=== PATIENT | male | born 1950 | race Caucasian/White ===

== ENCOUNTER 2016-11-08 11:52 | Outpatient (CLI) ==
[2013-02-06 14:15] VITALS: BMI 27.3
[2013-02-09 03:43] VITALS: TEMP 97.7
--- NOTE | 2016-11-08 13:24 | DI ---
EXAM: Chest two views HISTORY: Cough, chronic obstructive pulmonary disease COMPARISON: 01/13/2015 TECHNIQUE: Two views of the chest were performed FINDINGS: There is lower airway bronchial wall thickening. There is no focal airspace consolidatio n. There is no pleural effusion or pneumothorax. The heart is normal in size. The mediastinal cont our is unchanged, noting atherosclerosis. There are median sternotomy wires. There is no acute abn ormality of the bones. IMPRESSION: Lower airway thickening may represent reactive airways disease or bronchiolitis. No fo nelson airspace consolidation.
== END 2016-11-08 11:53 | disposition home or self-care (01) ==
LOC: RAD 11:52
PROVIDERS: ATTEND Internal Medicine
DX: J44.9 Chronic obstructive pulmonary disease, unspecified (principal); F17.210 Nicotine dependence, cigarettes, uncomplicated; R05 Cough

== ENCOUNTER 2017-12-01 12:32 | Outpatient (CLI) | payer OTHER ==
[2013-02-06 14:15] VITALS: BMI 27.3
[2013-02-09 03:43] VITALS: TEMP 97.7
--- NOTE | 2017-12-01 12:56 | DI ---
EXAM: CHEST FRONTAL AND LATERAL VIEWS HISTORY: Chronic obstructive pulmonary disease. COMPARISON: 11/08/2016 FINDINGS: Heart size remains within normal limits. There is at least mild atherosclerotic disease. Sternotomy wires are present. Mild hyperinflation. No acute infiltrates are seen. No vascular sreekanth estion. There is no consolidation, visible pleural fluid or pneumothorax. Bones reveal no acute frac ture. IMPRESSION: No acute cardiopulmonary process.
== END 2017-12-01 12:33 | disposition home or self-care (01) ==
LOC: RAD 12:32
PROVIDERS: ATTEND Internal Medicine
DX: J44.9 Chronic obstructive pulmonary disease, unspecified (principal); F17.210 Nicotine dependence, cigarettes, uncomplicated

== ENCOUNTER 2017-12-12 06:43 | Outpatient (CLI) | payer OTHER ==
[2013-02-06 14:15] VITALS: BMI 27.3
[2013-02-09 03:43] VITALS: TEMP 97.7
--- NOTE | 2017-12-12 10:04 | ECHO2D ---
Date of Exam: 12/12/17 Ordering Physician: DR. MERCY COOPER Room #: OP Reason for Echo: HX CABG, SOB, COPD M-Mode Normal Adult Results LV Dimensions Normal Adult Results AoV Opening excursions >1.6 >1.6 LVEDD-base- 3.5-5.8 4.7 Ao root dimensions 2.0-3.7 4.0 LVESD-base- 3.1-4.6 L. Atrium dimensions 1.9-3.8 4.0 Post. Wall thickness 0.8-1.1 1.3 IV septum (thickness) 0.7-1.2 1.2 Post. Wall excursion 0.72-1.3 NORMAL Septal motion 0.7 Systolic motion R. Ventricular cavity 1.5-2.0 NORMAL LVEF 60% 45% Paradoxical septal wall motion NORMAL 2-D : HYPOKINETIC SEPTUM--MILDLY DILATED AORTIC ROOT, NORMAL VALVES, NO EFFUSION , NO THROMBUS, NORMAL LEFT VENTRICLE AND LEFT ATRIAL CAVITY M-MODE: MV: NORMAL AV: NORMAL TV: NORMAL PV: CHAMBER SIZE: DILATED AORTIC ROOT WALL MOTION: HYPOKINETIC SEPTUM PERICARDIUM: NORMAL INTERPRETATION: 1. BORDERLINE LEFT VENTRICULAR HYPERTROPHY, LEFT VENTRICULAR EJECTION FRACTION 45% 2. HYPOKINETIC SEPTUM 3. MILDLY DILATED AORTIC ROOT MTDD
== END 2017-12-12 06:44 | disposition home or self-care (01) ==
LOC: CAR 06:43
PROVIDERS: ATTEND Internal Medicine
DX: J44.9 Chronic obstructive pulmonary disease, unspecified (principal); R06.02 Shortness of breath; Z95.1 Presence of aortocoronary bypass graft
CPT/HCPCS: 93005; 93010

== ENCOUNTER 2017-12-15 06:37 | Outpatient (CLI) | payer OTHER ==
[2013-02-06 14:15] VITALS: BMI 27.3
[2013-02-09 03:43] VITALS: TEMP 97.7
[2017-12-15] MEDS ORDERED: DOBUTAMINE 250 ML IV ONE (06:46)
[2017-12-15] MEDS ORDERED: ATROPINE SULFATE PFS ONE (06:47)
== END 2017-12-15 06:38 | disposition home or self-care (01) ==
LOC: CAR 06:37
PROVIDERS: ATTEND Internal Medicine
DX: R06.02 Shortness of breath (principal); J44.9 Chronic obstructive pulmonary disease, unspecified; Z95.1 Presence of aortocoronary bypass graft

== ENCOUNTER 2018-06-30 15:14 | Inpatient (IN) | payer OTHER ==
[2018-06-30] MEDS ORDERED: ATROPINE SULFATE PFS IVP PRN (15:38)
[2018-06-30] MEDS ORDERED: TYLENOL PO PRN (15:38)
[2018-06-30] MEDS ORDERED: NITROSTAT SL PRN (15:38)
[2018-06-30] MEDS ORDERED: MORPHINE 4 MG/ML VIAL IVP PRN (15:38)
[2018-06-30] MEDS ORDERED: VISTARIL INJ IM PRN (15:38)
[2018-06-30 15:56] VITALS: BMI 25.4
[2018-06-30] MEDS ORDERED: SODIUM CHLORIDE 500 ML IV SCH (16:00)
[2018-06-30] MEDS ORDERED: SODIUM CHLORIDE 1,000 ML IV SCH (16:30)
[2018-06-30] MEDS: LIBRIUM PO SCH ×2 (16:31→20:28)
[2018-06-30] MEDS: ROCEPHIN 1 GM in SODIUM CHLORIDE 50 ML IV SCH (16:31)
[2018-06-30] MEDS: LOVENOX SUBCUT SCH (16:32)
[2018-06-30] MEDS: THIAMINE IM SCH (16:32)
[2018-06-30] MEDS: ZITHROMAX PO SCH (16:32)
[2018-06-30] MEDS: SOLU-CORTEF 250 MG IVP SCH ×2 (16:32→21:38)
[2018-06-30] MEDS: PULMICORT 0.5 MG/2 ML NEB SCH (17:26)
[2018-06-30] MEDS: XOPENEX 1.25 MG NEB SCH ×2 (17:26→23:20)
[2018-06-30] MEDS: SODIUM CHLORIDE 0.9%-KCL 40MEQ 1,000 ML IV SCH (18:18)
--- NOTE | 2018-06-30 18:28 | CT ---
Exam: CT of the chest without and with contrast History: Acute bronchitis Technique: [address] of the chest pre and post intravenous contrast FINDINGS: The lung windows show bilateral multilobar mixed ground-glass, consolidative and tree-in-b ud nodular infiltrate. Atherosclerotic calcification of the aorta and coronary arteries. Prior fransisco nary artery bypass. No pathologic lymph node enlargement mediastinum. No acute findings of the uppe r abdomen. Impression: 1. Bilateral multilobar mixed character infiltrate with patchy areas of consolidation in the lower l obes. Correlate for pneumonia.
[2018-07-01] MEDS: XOPENEX 1.25 MG NEB SCH ×4 (04:38→23:02)
[2018-07-01] MEDS: PULMICORT 0.5 MG/2 ML NEB SCH ×2 (04:38→17:47)
[2018-07-01] MEDS: SOLU-CORTEF 250 MG IVP SCH ×3 (06:06→21:18)
[2018-07-01] MEDS: SODIUM CHLORIDE 0.9%-KCL 40MEQ 1,000 ML IV SCH ×2 (08:10→21:28)
[2018-07-01] MEDS: ASPIRIN EC PO SCH (09:08)
[2018-07-01] MEDS: LIBRIUM PO SCH ×3 (09:08→21:19)
[2018-07-01] MEDS: ZITHROMAX PO SCH (09:08)
[2018-07-01] MEDS: LOVENOX SUBCUT SCH (09:09)
[2018-07-01] MEDS: ROCEPHIN 1 GM in SODIUM CHLORIDE 50 ML IV SCH (09:09)
[2018-07-01] MEDS: THIAMINE IM SCH (09:09)
[2018-07-01] MEDS: COREG PO SCH (17:18)
[2018-07-02] MEDS: PULMICORT 0.5 MG/2 ML NEB SCH ×2 (05:04→17:31)
[2018-07-02] MEDS: XOPENEX 1.25 MG NEB SCH ×4 (05:04→22:28)
[2018-07-02] MEDS: SOLU-CORTEF 250 MG IVP SCH ×3 (05:13→20:31)
[2018-07-02] MEDS: ASPIRIN EC PO SCH (07:44)
[2018-07-02] MEDS: COREG PO SCH ×2 (07:44→16:35)
[2018-07-02] MEDS: ZITHROMAX PO SCH (08:59)
[2018-07-02] MEDS: LIBRIUM PO SCH ×3 (08:59→20:32)
[2018-07-02] MEDS: LOVENOX SUBCUT SCH (09:00)
[2018-07-02] MEDS: THIAMINE IM SCH (09:03)
[2018-07-02] MEDS: ROCEPHIN 1 GM in SODIUM CHLORIDE 50 ML IV SCH (09:32)
[2018-07-02] MEDS: SODIUM CHLORIDE 0.9%-KCL 40MEQ 1,000 ML IV SCH ×2 (09:32→23:00)
[2018-07-03] MEDS: PULMICORT 0.5 MG/2 ML NEB SCH ×2 (04:55→16:55)
[2018-07-03] MEDS: XOPENEX 1.25 MG NEB SCH ×4 (04:55→23:50)
[2018-07-03] MEDS: SOLU-CORTEF 250 MG IVP SCH ×3 (05:36→17:24)
--- NOTE | 2018-07-03 09:14 | HOLTER ---
PATIENT INFORMATION AND COMMENTS Attending Physician: DR. MERCY COOPER Indications: ARRHYTHMIA'S __ Patient Medications: ASA, ATROPINE, ZITHROMAX, PULMICORT, LIBRIUM, LOVENOX, VISTARIL, POTASSIUM, XOPENEX __ Pre-procedure Summary: Protocol: Standard Heart Rate Started: 07/01/181547 Minimum: 42 BPM Weight: 148 LBS Ended: 07/02/181547 Maximum: 170 BPM Height: 64" Duration: 24 HOURS Average: 73 BPM _ INTERPRETATIONS/OBSERVATIONS: 1. BASIC RHYTHM: SINUS, RATE 42 BPM TO 140 BPM, AVERAGE 73 BPM 2. FREQUENT PAC'S --7% TO 10% OF BEATS SCANNED, SHORT NONSUSTAINED, PAT'S NOTED, MOSTLY OF 4 TO [address]-T WAVE CHANGES FROM BASELINE 4. ACTIVITY LOG NOT MAINTAINED MTDD
[2018-07-03] MEDS: ROCEPHIN 1 GM in SODIUM CHLORIDE 50 ML IV SCH (09:26)
[2018-07-03] MEDS: LOVENOX SUBCUT SCH (09:27)
[2018-07-03] MEDS: LIBRIUM PO SCH ×3 (09:28→20:45)
[2018-07-03] MEDS: COREG PO SCH ×2 (09:28→17:22)
[2018-07-03] MEDS: ASPIRIN EC PO SCH (09:28)
[2018-07-03] MEDS: THIAMINE IM SCH (09:28)
--- NOTE | 2018-07-03 09:39 | PCM.PROG ---
Attending Provider: ATTENDING PROVIDER: Dr. MERCY COOPER This patient is seen with Anabel Bradshaw, Nurse Practitioner. DATE OF SERVICE: 07/03/18 SUBJECTIVE: This 67 year old WHITE/ M was hospitalized 06/30/18. The patient is lying in bed resting comfortably. He has had some episodes of SVT, none since starting on Coreg. He still has productive cough with yellow-green sputum. He is still feeling short of breath. REVIEW OF SYSTEMS: CONSTITUTIONAL: Weakness. No night sweats. No malaise, lethargy. No fever or chills. HEENT: Eyes: No visual changes. No eye pain. No eye discharge. ENT: No runny nose. No epistaxis. No sinus pain. No odynophagia. No congestion. RESPIRATORY: Cough and wheezing. hemoptysis. No shortness of breath. CARDIOVASCULAR: No angina symptoms. No CHF symptoms. No atypical chest pain for CAD. No palpitations. No orthopnea.. GASTROINTESTINAL: No abdominal pain. No nausea or vomiting. No diarrhea or constipation. No hematemesis. No hematochezia. GENITOURINARY: No urgency. No frequency. No dysuria. No hematuria. No obstructive symptoms. No discharge. No pain. No significant abnormal bleeding. MUSCULOSKELETAL: No musculoskeletal pain; no joint swelling. NEUROLOGICAL: Awake, alert, oriented to time, place and person. No headache. No neck pain. No syncope. No seizures. No dizziness. PSYCHIATRIC: Not anxious. No depression. No suicidal thoughts. No homicidal thoughts. SKIN: No rash. No lesions. No wounds. ENDOCRINE: No unexplained weight loss. No weight gain. HEMATOLOGIC/LYMPHATIC: No anemia. No purpura. No petechiae. No prolonged or excessive bleeding. No palpable lymph nodes. PHYSICAL EXAMINATION: GENERAL: The patient is awake, alert and oriented, lying in bed in no distress. VITAL SIGNS: Temperature 97.6 F, Pulse 78, Respiratory Rate 14, BP 151/69, Pulse Ox 98% HEENT: Head normocephalic, atraumatic. Eyes: Extraocular muscles are intact. Pupils are equal, round and reactive to light and accommodation. Ears: No lesions. Nose appeared normal. Throat: No exudate or erythema. NECK: Supple. No JVD, no carotid bruit. No lymphadenopathy or thyromegaly. LUNGS: Severely diminished breath sounds with bilateral rhonchi as well as inspiratory and expiratory wheeze. Percussion note normal. Chest symmetrical. HEART: S1, S2, no S3. No murmurs. No cyanosis or clubbing. No ascites. Pulses: Dorsalis pedis and posterior tibial pulses +1 to +2 both sides. ABDOMEN: Soft. Non-tender. Bowel sounds active. No CVA tenderness. No mass felt. EXTREMITIES: No edema. Full range of motion of all extremities, equal. NEUROLOGIC: No focal deficit. Cranial nerves II through XII are grossly intact. No headache, no double vision or headache. SKIN: Not dry. Intact. Turgor-normal. LYMPHATIC: No palpable lymph nodes/no lymphedema. MUSCULOSKELETAL: Normal joints with no swelling. Muscle tone is normal. LAB REVIEW: 07/03/18 04:43 07/03/18 04:43 07/03/18 04:43: WBC 16.83 H, RBC 3.79 L, Hgb 11.9 L, Hct 35.4 L, MCV 93.4, MCH 31.4 H, MCHC 33.6, RDW Coeff of Lanette 12.7, Plt Count 397, Immature Gran % (Auto) 0.8, Neut % (Auto) 89.5, Lymph % (Auto) 7.0 L, [place] % (Auto) 2.6, Eos % (Auto) 0.0, Baso % (Auto) 0.1, Immature Gran # (Auto) 0.1, Neut # (Auto) 15.1 H, Lymph # (Auto) 1.2, [place] # (Auto) 0.4, Eos # (Auto) 0.0, Baso # (Auto) 0.0 07/03/18 04:43: Sodium 136.1 L, Potassium 3.92, Chloride 105.8, Carbon Dioxide 26.0, Anion Gap 8.22, BUN 8.9 L, Creatinine 0.57 L, Estimated GFR (MDRD) 142.00 , BUN/Creatinine Ratio 15.61, Glucose 146.5 H, Calcium 8.30 L, Total Bilirubin 0.12 L, AST 54.1, ALT 53.5 H, Alkaline Phosphatase 68.4, Total Protein 6.48, Albumin 3.28 L, Globulin 3.20, Albumin/Globulin Ratio 1.02 ASSESSMENT: 1. Bilateral pneumonia. 2. Severe COPD. 3. Bilateral pneumonia. 4. Hyponatremia - resolved. 5. Episodes of tachycardia - controlled. PLAN: 1. Stop IV fluids. 2. Increase Solu-Cortef 125 mg q.6hr. Plan and coordination of the patient's care discussed in the presence of Digital Hardware Design Engineer and nurse. CONDITION: Stable SCRIBED BY: DENISHA STEPHENS Sand Mixer Machine scribed while in presence of service performed by Dr. Cooper/Anabel Bradshaw APRN on 07/03/18 ([id number])
[2018-07-04] MEDS: SOLU-CORTEF 250 MG IVP SCH ×2 (01:19→05:45)
[2018-07-04] MEDS: PULMICORT 0.5 MG/2 ML NEB SCH ×2 (05:10→16:55)
[2018-07-04] MEDS: XOPENEX 1.25 MG NEB SCH ×4 (05:10→23:05)
--- NOTE | 2018-07-04 08:58 | PN ---
DATE OF SERVICE: 07/01/18 SUBJECTIVE: The patient is doing well. He is up and about. He is complaining of cough which is much less than before. He says he is feeling better. The is in the room. REVIEW OF SYSTEMS: CONSTITUTIONAL: No night sweats. No fatigue, malaise, lethargy. No fever or chills. HEENT: Eyes: No visual changes. No eye pain. No eye discharge. ENT: No runny nose. No epistaxis. No sinus pain. No sore throat. No odynophagia. No congestion. RESPIRATORY: No cough, no congestion. No hemoptysis. No shortness of breath. CARDIOVASCULAR: No angina symptoms. No CHF symptoms. No atypical chest pain for CAD. No palpitations. No orthopnea. GASTROINTESTINAL: No abdominal pain. No nausea or vomiting. No diarrhea or constipation. No hematemesis. No hematochezia. GENITOURINARY: No urgency. No frequency. No dysuria. No hematuria. No obstructive symptoms. No discharge. No pain. No significant abnormal bleeding. MUSCULOSKELETAL: No musculoskeletal pain; no joint swelling. NEUROLOGICAL: No headache. No neck pain. No syncope. No seizures. No dizziness. PSYCHIATRIC: Not anxious. No depression. No suicidal thoughts. No homicidal thoughts. SKIN: No rash. No lesions. No wounds. ENDOCRINE: No unexplained weight loss. No weight gain. HEMATOLOGIC/LYMPHATIC: No anemia. No purpura. No petechiae. No prolonged or excessive bleeding. No palpable lymph nodes. PHYSICAL EXAMINATION: GENERAL: The patient is oriented to time, place and person. HEENT: Head normocephalic, atraumatic. Eyes: Extraocular muscles are intact. Pupils are equal, round and reactive to light and accommodation. Ears: No lesions. Nose appeared normal. Throat: No exudate or erythema. NECK: Supple. No JVD, no carotid bruit. No lymphadenopathy or thyromegaly. LUNGS: Clear to auscultation. Percussion note normal. Chest symmetrical. HEART: S1, S2, no S3. No murmurs. No cyanosis or clubbing. No ascites. Pulses: Dorsalis pedis and posterior tibial pulses +1 to +2 both sides. ABDOMEN: Soft. Nontender. Bowel sounds active. No CVA tenderness. No mass felt. EXTREMITIES: No edema. Full range of motion of all extremities, equal. NEUROLOGIC: No focal deficit. Cranial nerves II through XII are grossly intact. No headache, no double vision or headache. SKIN: Not dry. Intact. Turgor - normal. LYMPHATIC: No palpable lymph nodes/no lymphedema. MUSCULOSKELETAL: Normal joints with no swelling. Muscle tone is normal. ASSESSMENT: 1. ACUTE BRONCHITIS/PNEUMONITIS SEEMS TO BE RESOLVING 2. SEVERE CHRONIC LUNG DISEASE 3. HEAVY SMOKER 4. CORONARY ARTERY DISEASE The patient has short runs of SVT consisting of 6 to 8 beats sinus rhythm likely from his chronic lung disease. Will put him on Coreg 3.125 mg twice a day. With improvement in his respiratory status the paroxysmal SVT should get under control. The patient again declined any dobutamine stress echo Sestamibi. I decided to do it on Tuesday and will try to explain to him the importance of it. Will also do PFT and holter monitor. CONDITION: Stable TIME SPENT: More than 30 minutes. Plan and coordination of the patient's care discussed in the presence of nurse. VIET
--- NOTE | 2018-07-04 09:03 | PN ---
DATE OF SERVICE: 07/02/18 SUBJECTIVE: 67-year-old white male hospitalized with pneumonitis, shortness of breath and congestion. The patient's condition has improved. He is breathing better. REVIEW OF SYSTEMS: CONSTITUTIONAL: No night sweats. No fatigue, malaise, lethargy. No fever or chills. HEENT: Eyes: No visual changes. No eye pain. No eye discharge. ENT: No runny nose. No epistaxis. No sinus pain. No sore throat. No odynophagia. No congestion. RESPIRATORY: Coughing much less. No hemoptysis. No shortness of breath. CARDIOVASCULAR: No angina symptoms. No CHF symptoms. No atypical chest pain for CAD. No palpitations. No orthopnea. GASTROINTESTINAL: Appetite improving. No abdominal pain. No nausea or vomiting. No diarrhea or constipation. No hematemesis. No hematochezia. GENITOURINARY: No urgency. No frequency. No dysuria. No hematuria. No obstructive symptoms. No discharge. No pain. No significant abnormal bleeding. MUSCULOSKELETAL: No musculoskeletal pain; no joint swelling. NEUROLOGICAL: No headache. No neck pain. No syncope. No seizures. No dizziness. PSYCHIATRIC: Not anxious. No depression. No suicidal thoughts. No homicidal thoughts. SKIN: No rash. No lesions. No wounds. ENDOCRINE: No unexplained weight loss. No weight gain. HEMATOLOGIC/LYMPHATIC: No anemia. No purpura. No petechiae. No prolonged or excessive bleeding. No palpable lymph nodes. PHYSICAL EXAMINATION: VITAL SIGNS: Vital signs: Temperature 97.7, pulse 79, respiratory rate 24, BP 140/84, pulse ox 91%. HEENT: Head normocephalic, atraumatic. Eyes: Extraocular muscles are intact. Pupils are equal, round and reactive to light and accommodation. Ears: No lesions. Nose appeared normal. Throat: No exudate or erythema. NECK: Supple. No JVD, no carotid bruit. No lymphadenopathy or thyromegaly. LUNGS: Decreased breath sounds with mild wheeze but good air entry. Percussion note normal. Chest symmetrical. HEART: S1, S2, no S3. No murmurs. No cyanosis or clubbing. No ascites. Pulses: Dorsalis pedis and posterior tibial pulses +1 to +2 both sides. ABDOMEN: Soft. Nontender. Bowel sounds active. No CVA tenderness. No mass felt. EXTREMITIES: No edema. Full range of motion of all extremities, equal. NEUROLOGIC: No focal deficit. Cranial nerves II through XII are grossly intact. No headache, no double vision or headache. SKIN: Not dry. Intact. Turgor - normal. LYMPHATIC: No palpable lymph nodes/no lymphedema. MUSCULOSKELETAL: Normal joints with no swelling. Muscle tone is normal. LABS: Telemetry shows less arrhythmias, sinus bradycardia. PVCs are less frequent. PAT less frequent. ASSESSMENT: 1. ACUTE BRONCHITIS RESOLVING. 2. CARDIAC ARRHYTHMIAS UNDER CONTROL. 3. SEVERE CHRONIC LUNG DISEASE. 4. ALCOHOLISM, NO DT'S. 5. CORONARY ARTERY DISEASE WITH HISTORY OF MO IN THE PAST, STABLE. 6. NO CHF SYMPTOMS. PLAN: 1. Continue IV antibiotics, steroids, nebs. EDUCATION CARRIED OUT ABOUT: Smoking and effects of smoking on different body organs. The patient is highly noncompliant. PROGNOSIS: Guarded. TIME SPENT: More than 30 minutes. Plan and coordination of the patient's care discussed in the presence of nurse. VIET
[2018-07-04] MEDS: ROCEPHIN 1 GM in SODIUM CHLORIDE 50 ML IV SCH (09:12)
[2018-07-04] MEDS: THIAMINE IM SCH (09:14)
[2018-07-04] MEDS: LOVENOX SUBCUT SCH (09:14)
--- NOTE | 2018-07-04 10:15 | PN ---
DATE OF SERVICE: 07/03/18 SUBJECTIVE: The patient was seen and examined with the nurse practitioner. The patient's condition is slowly improving. The patient is going to have echocardiogram done. The patient's holter showed sinus bradycardia at times at night in his sleep and has short runs of PAT, nonsustained consisting of 5 to 6 beats infrequent. Cardiovascular status stable. Respiratory status improving. Counseling for smoking done. The patient was seen and examined with the nurse practitioner. TIME SPENT: More than 30 minutes. Plan and coordination of the patient's care discussed in the presence of nurse. VIET
[2018-07-04] MEDS: K-DUR PO SCH ×2 (12:14→17:00)
[2018-07-04] MEDS: ASPIRIN EC PO SCH (12:15)
[2018-07-04] MEDS: LIBRIUM PO SCH ×3 (12:15→21:00)
[2018-07-04] MEDS: COREG PO SCH ×2 (12:16→17:00)
--- NOTE | 2018-07-04 13:33 | US ---
EXAM: Right upper quadrant abdominal ultrasound. History: Right upper quadrant abdominal pain. Technique: Multiple sonographic images through the abdomen were obtained. Color duplex Doppler was used to interrogate vascular flow. Findings: The liver is enlarged and echogenic. No focal liver lesions identified sonographically. No abdomina l ascites. Pancreas was not well visualized due to obscuration by bowel gas. Limited visualization of the right kidney demonstrates no evidence for hydronephrosis. There is antegrade flow within the main portal vein. No shadowing gallstones. Gallbladder wall is not thickened. Common bile duct alfonzo sures 0.3 cm in caliber. Impression: 1. Enlarged fatty liver. 2. No cholelithiasis
--- NOTE | 2018-07-04 13:54 | PCM.PROG ---
Attending Provider: ATTENDING PROVIDER: Dr. MERCY COOPER DATE OF SERVICE: 07/04/18 SUBJECTIVE: This 67 year old WHITE/ M was hospitalized 06/30/18 with acute bronchitis, pneumonia and mild shortness of breath. Condition improved. The patient is afebrile with no symptoms of CHF. REVIEW OF SYSTEMS: CONSTITUTIONAL: No night sweats. No fatigue, malaise, lethargy. No fever or chills. HEENT: Eyes: No visual changes. No eye pain. No eye discharge. ENT: No runny nose. No epistaxis. No sinus pain. No odynophagia. No congestion. RESPIRATORY: No cough, no congestion. No hemoptysis. Mild shortness of breath with exertion. CARDIOVASCULAR: No angina symptoms. No CHF symptoms. No atypical chest pain for CAD. No palpitations. No orthopnea.. GASTROINTESTINAL: No abdominal pain. No nausea or vomiting. No diarrhea or constipation. No hematemesis. No hematochezia. GENITOURINARY: No urgency. No frequency. No dysuria. No hematuria. No obstructive symptoms. No discharge. No pain. No significant abnormal bleeding. MUSCULOSKELETAL: No musculoskeletal pain; no joint swelling. NEUROLOGICAL: Awake, alert, oriented to time, place and person. No headache. No neck pain. No syncope. No seizures. No dizziness. PSYCHIATRIC: Not anxious. No depression. No suicidal thoughts. No homicidal thoughts. SKIN: No rash. No lesions. No wounds. ENDOCRINE: No unexplained weight loss. No weight gain. HEMATOLOGIC/LYMPHATIC: No anemia. No purpura. No petechiae. No prolonged or excessive bleeding. No palpable lymph nodes. PHYSICAL EXAMINATION: GENERAL: The patient is awake, alert and oriented, lying in bed in no distress. VITAL SIGNS: Temperature 97.5 F, Pulse 65, Respiratory Rate 20, BP 152/85, Pulse Ox 100% HEENT: Head normocephalic, atraumatic. Eyes: Extraocular muscles are intact. Pupils are equal, round and reactive to light and accommodation. Ears: No lesions. Nose appeared normal. Throat: No exudate or erythema. NECK: Supple. No JVD, no carotid bruit. No lymphadenopathy or thyromegaly. LUNGS: Decreased breath sounds. Clear to auscultation. Percussion note normal. Chest symmetrical. HEART: S1, S2, no S3. No murmurs. No cyanosis or clubbing. No ascites. Pulses: Dorsalis pedis and posterior tibial pulses +1 to +2 both sides. ABDOMEN: Soft. Non-tender. Bowel sounds active. No CVA tenderness. No mass felt. EXTREMITIES: No pedal edema. Full range of motion of all extremities, equal. NEUROLOGIC: No focal deficit. Cranial nerves II through XII are grossly intact. No headache, no double vision or headache. SKIN: Warm and dry. Intact. Turgor-normal. LYMPHATIC: No palpable lymph nodes/no lymphedema. MUSCULOSKELETAL: Normal joints with no swelling. Muscle tone is normal. LAB REVIEW: 07/04/18 04:30 07/04/18 04:30 07/04/18 04:30: WBC 12.79 H, RBC 3.71 L, Hgb 11.6 L, Hct 34.9 L, MCV 94.1 H, MCH 31.3 H, MCHC 33.2, RDW Coeff of Lanette 12.7, Plt Count 382, Immature Gran % ( Auto) 1.4, Neut % (Auto) 87.0, Lymph % (Auto) 7.9 L, [place] % (Auto) 3.6, Eos % ( Auto) 0.0, Baso % (Auto) 0.1, Immature Gran # (Auto) 0.2, Neut # (Auto) 11.1 H, Lymph # (Auto) 1.0, [place] # (Auto) 0.5, Eos # (Auto) 0.0, Baso # (Auto) 0.0 07/04/18 04:30: Sodium 136.0 L, Potassium 3.35 L, Chloride 103.6, Carbon Dioxide 30.8 H, Anion Gap 4.95, BUN 10.0, Creatinine 0.57 L, Estimated GFR (MDRD ) 142.00, BUN/Creatinine Ratio 17.54, Glucose 130.4 H, Calcium 8.04 L, Total Bilirubin 0.11 L, AST 102.0 H D, ALT 126.8 H D, Alkaline Phosphatase 61.5, Total Protein 5.92 L, Albumin 2.90 L, Globulin 3.02, Albumin/Globulin Ratio 0.96 ASSESSMENT: 1. PNEUMONIA 2. COPD 3. ALCOHOLIC WITH NO SIGNS OF DT'S. ABNORMAL LIVER ENZYMES COULD BE FROM ALCOHOLIC HEPATITIS. WILL DO US OF LIVER. PLAN: 1. Repeat chest x-ray. 2. Will d/c Solu-Cortef. 3. Start Prednisone 20 mg daily. 4. K-Dur 20 mEq b.i.d. 5. Dobutamine Stress Echo Sestamibi to be done. 6. Counseling for smoking done. 7. Ultrasound of liver today. Rhythm strips show frequent PAC's with short run PAT's noted mostly of 10 to 12 beats; wide QRS could be ventricular tachycardia noted with possibility of atrial fibrillation with aberrant conduction, V-Tach or Titus. Plan and coordination of the patient's care discussed in the presence of Ultrasound Sonographer and nurse. CONDITION: Stable SCRIBED BY: DENISHA STEPHENS Station Attendant scribed while in presence of service performed by Dr. MERCY COOPER on 07/04/18 ([id number])
--- NOTE | 2018-07-04 14:07 | DI ---
EXAM: Two views of the chest. History: Follow-up pneumonia Comparison: Chest radiograph 12/01/2017, chest CT 06/30/2018 Findings: Heart size is upper limits of normal. Atherosclerotic vascular calcifications. Sternotom y wires. The bilateral lung infiltrates are stable to slightly improved. No appreciable pleural flu id and no pneumothorax. No acute osseous abnormalities. Coronary calcifications. Impression: The bilateral lung infiltrates are stable to slightly improved.
[2018-07-05] MEDS: PULMICORT 0.5 MG/2 ML NEB SCH ×2 (05:05→17:38)
[2018-07-05] MEDS: XOPENEX 1.25 MG NEB SCH ×4 (05:05→23:20)
[2018-07-05] MEDS ORDERED: PREDNISONE PO SCH (08:00)
[2018-07-05] MEDS ORDERED: K-DUR PO ONE ×2 (09:00→13:00)
[2018-07-05] MEDS: K-DUR PO SCH (09:07)
[2018-07-05] MEDS: COREG PO SCH ×2 (10:13→17:10)
[2018-07-05] MEDS: ASPIRIN EC PO SCH (10:13)
[2018-07-05] MEDS: LIBRIUM PO SCH ×3 (10:14→20:56)
[2018-07-05] MEDS: PREDNISONE PO SCH (10:14)
[2018-07-05] MEDS: ROCEPHIN 1 GM in SODIUM CHLORIDE 50 ML IV SCH (11:16)
[2018-07-05] MEDS: THIAMINE IM SCH (11:23)
[2018-07-05] MEDS: LOVENOX SUBCUT SCH (11:26)
--- NOTE | 2018-07-05 11:31 | NM ---
EXAM: Myocardial perfusion imaging HISTORY: Shortness of breath COMPARISON: None. TECHNIQUE: Patient was stressed on a treadmill and at peak exercise injected 3.12 mCi of thallium 201 chloride intravenously. SPECT imaging of the heart was acquired. 3 hours later, patient was inject ed 1.1 mCi of thallium 201 chloride intravenously while at rest and another SPECT imaging of the hear t was performed. Gated cardiac study could not be acquired on this patient. FINDINGS: Post stress images show normal left ventricular cavity size. Moderately reduced perfusion is noted involving the left ventricle apex which shows reperfusion on delayed imaging consistent with reversible ischemia. No other perfusion abnormality is identified. IMPRESSION: 1. SPECT myocardial imaging demonstrates apical reversible ischemia. 2. Gated cardiac study could not be acquired on this patient because of some technical issues.
--- NOTE | 2018-07-05 11:57 | ECHOSTRESS ---
Date of Exam: 07/05/18 Ordering Physician: DR. MERCY COOPER Reason for Echo: SOB, ARRHYTHMIA, CHEST TIGHTNESS, STRESS TEST--NO ISCHEMIA M-Mode Normal Adult Results LV Dimensions Normal Adult Results AoV Opening excursions >1.6 LVEDD-base- 3.5-5.8 Ao root dimensions 2.0-3.7 LVESD-base- 3.1-4.6 L. Atrium dimensions 1.9-3.8 Post. Wall thickness 0.8-1.1 IV septum (thickness) 0.7-1.2 Post. Wall excursion 0.72-1.3 Septal motion Systolic motion R. Ventricular cavity 1.5-2.0 LVEF 60% Paradoxical septal wall motion 2-D: NORMAL LEFT VENTRICULAR CONTRACTILITY--RESTING AND POST EXERCISE M-MODE: MV: AV: TV: PV: CHAMBER SIZE: WALL MOTION: NORMAL LEFT VENTRICULAR CONTRACTILITY--RESTING AND POST EXERCISE PERICARDIUM: INTERPRETATION: 1. NORMAL LEFT VENTRICULAR CONTRACTILITY--RESTING AND POST EXERCISE MTDD
--- NOTE | 2018-07-05 12:07 | STECHESEMD ---
Date of Test: 07/05/18 Ordering Physician: DR. MERCY COOPER Occupation: ANN Reason for Exam: SOB, ARRHYTHMIA, CHEST TIGHTNESS Smoking History: 50+ YEARS Height: 64" Weight: 148 LBS Target Heart Rate: 128/151 Current Medications: ASA, DUONEB Resting EKG: SINUS RHYTHM/ NO ACUTE CHANGES S-T SEGMENT STAGE MPH/GRADE HEART RATE BPM BLOOD PRESSURE mmhg RHYTHM +/- ELEVATION DEPRESSION SYMPTOMS At Rest 65 BPM 146/82 MMHG SR X NONE 1 1.7/0% 116 BPM 158/88 SR X NONE 2 1.7/5% 3 1.7/10% 4 2.5/12% 5 3.4/14% Immediately after 122 BPM SR X SOB Minutes Post Exercise 2:00 92 BPM 162/70 MMHG SR X NONE Minutes Post Exercise DURATION OF EXERCISE: 4:02 MAXIMUM HEART RATE REACHED: 122 BPM REASON FOR TERMINATION: SHORT OF BREATH 90% OXYGEN SATURATION WITH EXERCISE ON ROOM AIR METS 3.5 INTERPRETATION: 1. NO EVIDENCE OF ISCHEMIA BY ST-T WAVE CHANGES 2. NO CHEST PAIN OR DISCOMFORT 3. NO ARRHYTHMIAS 4. BLOOD PRESSURE RESPONSE NORMAL NORMAL LEFT VENTRICULAR CONTRACTILITY--RESTING AND POST EXERCISE THALLIUM TO FOLLOW MTDD
[2018-07-05 22:21] VITALS: TEMP 97.7
[2018-07-06] MEDS: PULMICORT 0.5 MG/2 ML NEB SCH (04:33)
[2018-07-06] MEDS: XOPENEX 1.25 MG NEB SCH (04:33)
[2018-07-06 06:05] VITALS: BP 122/67
--- NOTE | 2018-07-06 08:47 | HP ---
DATE OF SERVICE: 06/30/18 HISTORY OF PRESENT ILLNESS: 67-year-old male presented with nasal congestion, coughing with yellow-green phlegm. He has been sick times 5 days. He is not eating much, has lost 11 lbs. He has low grade fever. He has nebs at home which are not helping much. PAST MEDICAL HISTORY: COPD Osteoarthritis PAD Hypertension Sleep apnea Anemia PAST SURGICAL HISTORY: CABG[place] [address] Ram Fracture right leg with surgery 2010 REVIEW OF SYSTEMS: CONSTITUTIONAL: Low grade fever and fatigue. HEENT: Sinus drainage. No sore throat. RESPIRATORY: Cough with yellow/green sputum. CARDIOVASCULAR: Positive for shortness of breath. No atypical chest pain for coronary artery disease. No angina, CHF symptoms or palpitations. GASTROINTESTINAL: No melena or abdominal pain. No GERD. GENITOURINARY: No hematuria, no prostatism, no polyuria. DESIGN ASSEMBLER: No blackout, no dizziness, no headache, no double vision. MUSCULOSKELETAL: Positive for osteoarthritic pain. ENDOCRINE: Weight loss of 11 lbs. SKIN: Not dry, no rash. PSYCHIATRIC: Not anxious, no depression, no suicidal thoughts, no homicidal thoughts. SOCIAL HISTORY: Tobacco - yes. Two packs per day, now less, for 55 years. Alcohol - yes. . FAMILY HISTORY: with four children. Retired. Father . Mother living. Brother and sister none. MEDICATIONS: Duoneb 0.5 mg - 3 mg INH four times per day p.r.n. Aspirin 81 mg p.o. daily Advair Diskus one puff INH two times per day a.m. and p.m., 12 hours apart Spiriva with Handihaler one capsule once daily ALLERGIES: NKDA PHYSICAL EXAMINATION: V/S: Pulse 99, BP 110/60, temperature 98.6, 02 sat 91%. Weight 149.0 lbs. Height 5'4", BMI 25.6. GENERAL APPEARANCE: Oriented times three. HEENT: Yellow/green drainage. NECK: No JVP, no bruits. RESPIRATORY: Lungs have rales bilaterally with inspiratory and expiratory wheezing. CARDIOVASCULAR: S1, S2, no S3, no murmurs. No cyanosis, clubbing. No ascites. GI/ABDOMEN: No tenderness. Bowel sounds are active. EXTREMITIES: No edema, pulses +1, equal. DESIGN ASSEMBLER: Deep tendon reflexes, sensory, motor and gait all normal. RECTAL/PROSTATE: 4/18 (1.0). Patient refused colonoscopy screening. ASSESSMENT: 1. Acute pneumonitis 2. Shortness of breath 3. COPD 4. Noncompliant of lifestyle -drinks and smokes - no followups 5. COPD - smoking 6. Osteoarthritis 7. CABGs 8. History of alcoholism 9. PAD 10. Hypertension 11. Sleep apnea 12. COPD 13. Anemia PLAN: 1. Admit 2. Thiamine 100 mg IM daily 3. Librium 25 mg t.i.d. p.o. one now. Watch for withdrawal/DTs. 4. Routine telemetry orders. 5. Xopenex 1.25 nebs q.6hr scheduled. 6. NS @ 75 cc/hr IV. 7. CBC/CMP now and daily. 8. CT of chest with and without contrast. 9. Rocephin 1 gm IV daily. 10. Xanax 500 mg p.o. daily times three days. 11. Solu-Cortef 125 mg IV q.8hr. 12. ABG on room air. 13. 02 sat 1-2L/NC. 14. Regular diet. 15. Pulmicort nebs. 16. Lovenox 40 mg SubQ daily. 17. BNP, TSH times one. TIME SPENT: More than 70 minutes. MTDD
[2018-07-06] MEDS ORDERED: KEFLEX PO SCH (09:00)
[2018-07-06] MEDS: LOVENOX SUBCUT SCH (09:08)
[2018-07-06] MEDS: ASPIRIN EC PO SCH (09:15)
[2018-07-06] MEDS: COREG PO SCH (09:16)
[2018-07-06] MEDS: THIAMINE IM SCH (09:16)
[2018-07-06] MEDS: PREDNISONE PO SCH (09:16)
--- NOTE | 2018-07-06 09:28 | CM.DICTOOL ---
ADMISSION: 06/30/18 15:14 DISCHARGE: JULY 06, 2018 TRANSFER TO [facility] DATE OF SERVICE: 07/06/18 FINAL DIAGNOSIS REVERSIBLE ISCHEMIA APEX OF LEFT VENTRICLE BY THALLIUM SCAN CABG, 1999 STENT APPLICATION, 2009 PNEUMONIA, RESOLVING COPD HYPONATREMIA, RESOLVED HYPOKALEMIA ELEVATED LFT'S HISTORY OF NON-COMPLIANCE POOR HISTORIAN FREQUENT PAC'S SHORT BURST OF NON-SUSTAINED PAT PER HOLTER MS, HISTORY OF HYPERTENSION PERIPHERAL ARTERIAL DISEASE SLEEP APNEA ANEMIA OSTEOARTHRITIS TOBACCO USE ALCOHOLISM FRACTURE RIGHT LEG WITH PLATE, 2010 LAST VITALS Temp Pulse Resp BP Pulse Ox 97.7 F 74 20 122/67 94 L 07/06/18 06:00 07/06/18 06:00 07/06/18 06:00 07/06/18 06:00 07/06/18 06:00 TAKE THESE MEDICATIONS AT HOME Carvedilol (Coreg) 3.125 mg PO BIDWM [facility] Last Admin: 07/05/18 17:10 Dose: 3.125 mg Cephalexin (Keflex) 500 mg PO Q8HR [facility] Last Admin: Prednisone (Prednisone) 10 mg PO DAILYWM [facility] Last Admin: 07/05/18 10:14 Dose: 20 mg ASA 81 mg PO Daily Last Admin: 07/05/2018 10:15 Ipratropium/Albuterol Sulfate IH QID Last Admin: ALLERGIES No Known Allergies Allergy (Unverified 02/06/13 12:01) DISCONTINUED MEDICATIONS NEW PRESCRIPTIONS: Coreg 3.125 mg BID Keflex 500 mg PO TID for 5 days Prednisone 10 mg PO for 5 days SMOKING: Advised to stop smoking DISEASE SPECIFIC EDUCATION: Heart Cath Smoking Cessation Alcohol Use, avoiding Importance of regular physician follow-ups LAB REVIEW: 07/06/18 04:50 07/06/18 04:50 07/06/18 04:50: Triglycerides 84.4, Cholesterol 158.7, LDL Cholesterol, Calc 106 , VLDL Cholesterol 17, HDL Cholesterol 36.3, Cholesterol/HDL Ratio 4.4 L 07/06/18 04:50: Sodium 135.2 L, Potassium 3.77, Chloride 99.5, Carbon Dioxide 33.5 H, Anion Gap 5.97, BUN 12.9, Creatinine 0.66, Estimated GFR (MDRD) 120.00, BUN/Creatinine Ratio 19.54, Glucose 88.3, Calcium 8.12 L, Total Bilirubin 0.14 L , AST 108.1 H D, ALT 217.2 H, Alkaline Phosphatase 61.4, Total Protein 6.00 L, Albumin 3.03 L, Globulin 2.97, Albumin/Globulin Ratio 1.02 07/06/18 04:50: WBC 13.20 H, RBC 3.93 L, Hgb 12.4 L, Hct 37.0 L, MCV 94.1 H, MCH 31.6 H, MCHC 33.5, RDW Coeff of Lanette 12.8, Plt Count 415, Immature Gran % ( Auto) 1.8, Neut % (Auto) 64.7, Lymph % (Auto) 24.3, [place] % (Auto) 8.1, Eos % ( Auto) 0.9, Baso % (Auto) 0.2, Immature Gran # (Auto) 0.2, Neut # (Auto) 8.5 H, Lymph # (Auto) 3.2, [place] # (Auto) 1.1, Eos # (Auto) 0.1, Baso # (Auto) 0.0 07/05/18 10:00: Hepatitis A IgM Ab Negative, Hep Bs Antigen Negative, Hep B Core IgM Ab Negative, Hep C Ab Signal/Cutoff 0.2 PLAN: Discharge: Transferred to [facility] to Dr. Maya, cardiology for heart cath Diet: Regular as tolerated Activity: As tolerated, Patient independent with all activity Appointment: An appointment is scheduled for at [address] Channing Cedillo. Please bring all medications with you to the appointment Mr. Murray is alert and oriented x 3. He is independent with Activities of Daily Living. He is ambulatory independently without use of oxygen or assistive device. Meal intakes are good at 100%. Skin is intact and free of open wounds, irritation. He is continent of bowel and bladder. Channing Cedillo MD Anabel Bradshaw APRN
--- NOTE | 2018-07-06 10:06 | DS ---
DATE OF SERVICE: FINAL DIAGNOSIS: 1. REVERSIBLE ISCHEMIA APEX OF LEFT VENTRICLE BY THALLIUM SCAN 2. CABG, 1999 3. STENT APPLICATION, 2009 4. PNEUMONIA, RESOLVING 5. COPD 6. HYPONATREMIA, RESOLVED 7. HYPOKALEMIA 8. ELEVATED LFT'S 9. HISTORY OF NON COMPLIANCE 10. POOR HISTORIAN 11. FREQUENT PAC'S 12. SHORT BURST OF NON SUSTAINED PAT PER HOLTER 13. GA, HISTORY OF 14. HYPERTENSION 15. PERIPHERAL ARTERIAL DISEASE 16. SLEEP APNEA 17. ANEMIA 18. OSTEOARTHRITIS 19. TOBACCO USE 20. ALCOHOLISM 21. FRACTURE RIGHT LEG WITH PLATE, 2010 LAST VITALS: Temperature 97.7, pulse 74, respiratory rate 20, BP 122/67, pulse ox 94. DISCHARGE INSTRUCTIONS: 1. The patient is transferred to [facility] to Dr. Maya, Cardiology for heart cath. 2. Followup appointment: 07/17/[address] Cooper. Please bring all medications to appointment. MEDICATIONS AT DISCHARGE: (Take at home) Carvedilol (Coreg) 3.125 mg p.o. b.i.d. with meal LIDA Cephalexin (Keflex) 500 mg p.o.q.8hr LIDA Prednisone 10 mg p.o. daily with meal LIDA ASA 81 mg p.o. daily Ipratropium/Albuterol IH q.i.d. NEW PRESCRIPTIONS: Coreg 3.125 mg b.i.d. Keflex 500 mg p.o. t.i.d. for 5 days Prednisone 10 mg p.o. for 5 days DIET INSTRUCTIONS: Regular as tolerated. ACTIVITY: As tolerated. The patient is independent with all activity. SMOKING: Every day smoker DISEASE SPECIFIC EDUCATION: Heart Cath Smoking cessation Alcohol use, avoiding Importance of regular physician follow-ups HOSPITAL COURSE: This 67 year old WHITE/ M was hospitalized 06/30/18 with acute bronchitis and shortness of breath. The patient is a heavy smoker. The patient was treated in hospital with Rocephin and Zithromax. IV steroids and nebs treatment with Xopenex. Lovenox was given 40 mg subQ. The patient was counseled for smoking was also watched for DT's, which he did not have. The patient has history of alcohol abuse. His SGOT and SGPT were elevated four times the normal limit. He is very noncompliant in followups and his medication usage. Except for taking Baby Aspirin and nebs at home he had stopped taking all of his medications. At the present time, he was not started on any statin because of his liver profile. Protime is pending. Further evaluation for extent of his liver problem. His creatinine 0.6, BUN 12. He does not have history of diabetes mellitus. He has history of CAD with GA in the past. He underwent stress echo thallium scan which showed reversible ischemia involving apex of the left ventricle. He was advised to have coronary angiogram to which he agreed. Condition at time of transfer stable. The patient will be transferred to [facility] in [place], [place] LAB REVIEW: 07/06/18 04:50: Sodium 135.2 L, Potassium 3.77, Chloride 99.5, Carbon Dioxide 33.5 H, Anion Gap 5.97, BUN 12.9, Creatinine 0.66, Estimated GFR (MDRD) 120.00, BUN/Creatinine Ratio 19.54, Glucose 88.3, Calcium 8.12 L, Total Bilirubin 0.14 L , AST 108.1 H D, ALT 217.2 H, Alkaline Phosphatase 61.4, Total Protein 6.00 L, Albumin 3.03 L, Globulin 2.97, Albumin/Globulin Ratio 1.02 07/06/18 04:50: WBC 13.20 H, RBC 3.93 L, Hgb 12.4 L, Hct 37.0 L, MCV 94.1 H, MCH 31.6 H, MCHC 33.5, RDW Coeff of Lanette 12.8, Plt Count 415, Immature Gran % ( Auto) 1.8, Neut % (Auto) 64.7, Lymph % (Auto) 24.3, [place] % (Auto) 8.1, Eos % ( Auto) 0.9, Baso % (Auto) 0.2, Immature Gran # (Auto) 0.2, Neut # (Auto) 8.5 H, Lymph # (Auto) 3.2, [place] # (Auto) 1.1, Eos # (Auto) 0.1, Baso # (Auto) 0.0 07/05/18 10:00: Hepatitis A IgM Ab Negative, Hep Bs Antigen Negative, Hep B Core IgM Ab Negative, Hep C Ab Signal/Cutoff 0.2 SCRIBED BY: DENISHA STEPHENS, Movement Therapist scribed while in presence of service performed by Dr. MERCY COOPER on 07/06/18 ([id number]) TIME SPENT: More than 60 minutes. VIET
== END 2018-07-06 10:05 | disposition short-term general hospital (02) | DRG 194 ==
LOC: MEDSURG B 15:14
PROVIDERS: ADMIT Internal Medicine; ATTEND Internal Medicine
DX: J18.9 Pneumonia, unspecified organism (principal); E87.1 Hypo-osmolality and hyponatremia; E87.6 Hypokalemia; J44.9 Chronic obstructive pulmonary disease, unspecified; J40 Bronchitis, not specified as acute or chronic; I10 Essential (primary) hypertension; I73.9 Peripheral vascular disease, unspecified; I49.9 Cardiac arrhythmia, unspecified; I25.2 Old myocardial infarction; I25.10 Atherosclerotic heart disease of native coronary artery without angina pectoris; G47.30 Sleep apnea, unspecified; D64.9 Anemia, unspecified; M19.90 Unspecified osteoarthritis, unspecified site; R06.02 Shortness of breath; Z72.0 Tobacco use; Z72.89 Other problems related to lifestyle; Z91.19 Patient's noncompliance with other medical treatment and regimen
CPT/HCPCS: 36415; 80053; 80061; 80074; 81001; 82550; 82803; 83880; 84443; 84484; 85025; 85610; 93005; 93010; 93227; 94640

== ENCOUNTER 2018-07-06 10:13 | Outpatient (CLI) ==
[2013-02-09 03:43] VITALS: TEMP 97.7
== END 2018-07-06 10:14 | disposition home or self-care (01) ==
LOC: AMBL 10:13
PROVIDERS: ATTEND Emergency Medicine
DX: R94.39 Abnormal result of other cardiovascular function study (principal)

== ENCOUNTER 2018-10-16 09:55 | Inpatient (IN) | payer OTHER ==
[2018-10-16] MEDS ORDERED: SOLU-MEDROL 125 MG IVP STA (10:13)
[2018-10-16] MEDS ORDERED: DUONEB NEB STA (10:13)
--- NOTE | 2018-10-16 11:24 | CT ---
EXAM: CT of the chest without contrast History: Short of breath Comparison: Chest CT 06/30/2018 Technique: Multiplanar CT images through the thorax were obtained without the administration of IV c ontrast Findings: Heart size is upper limits of normal. Coronary calcifications. No thoracic aortic aneury sm. No axillary lymphadenopathy. No pathologically enlarged mediastinal or hilar lymph nodes. Calc ified granulomas again seen within the thorax. Diffuse bronchial wall thickening and patchy bilatera l lung infiltrates with micronodules. No pleural fluid and no pneumothorax. Mild to moderate emphys krishna. Within the visualized upper abdomen, no acute findings. Left renal cyst is again seen. No acute oss eous abnormalities. Impression: 1. Bilateral pneumonia with micronodules. Follow-up recommended to assure resolution. 2. Emphysema. 3. Coronary artery disease
[2018-10-16] MEDS ORDERED: ROCEPHIN 2 GM in SODIUM CHLORIDE 100 ML IV STA (11:36)
--- NOTE | 2018-10-16 11:45 | ED.PDOC ---
General ED Provider: Dr. KRAGI WHITFIELD Chief Complaint: Respiratory Complaint Stated Complaint: shortness of breath flu like symp Time Seen by Physician: 10:00 Mode of Arrival: Walk-In Information Source: Patient Exam Limitations: No limitations Primary Care Provider: MERCY COOPER Nursing and Triage Documentation Reviewed and Agree: Yes Does patient meet sepsis criteria?: No System Inflammatory Response Syndrome: Not Applicable Sepsis Protocol: For patient's 13 years and over: Temp is 96.8 and below OR 101 and greater Pulse >90 BPM Resp >20/minute Acutely Altered Mental Status Are patient's symptoms suggestive of a new infection, such as: -Pneumonia -Skin, Soft Tissue -Endocarditis -UTI -Bone, Joint Infection -Implantable Device -Acute Abdominal Infection -Wound Infection -Meningitis -Blood Stream Catheter Infection -Unknown Respiratory Complaint Exam - Respiratory Complaint/Exam Symptoms Are: Still present Timing: Intermittent Initial Severity: Mild Current Severity: Mild Location: Nose, Throat, Chest Character: Reports: Non-productive cough, Dry cough Aggravating: Reports: URI Alleviating: Reports: Bronchodilators, Upright position Associated Signs and Symptoms: Reports: Chills, URI, Sore throat. Denies: Rapid breathing, Dyspnea, Fever, Chest pain, Pleuritic chest pain, Wheezing, Hemoptysis, Dizziness, Calf pain, Calf swelling, Edema, Nasal congestion, Hoarseness, Sinus discomfort, Vomiting, Weight loss, Decreased oral intake, Increased thirst, Increased appetite, Increased urination Related History: Reports: Similar episode (7 days COPD) History of Healthcare-Acquired Pneumonia: No Related Surgical History: Reports: None Pulmonary Embolism Risk Factors: None Review of Systems - Review Of Systems Constitutional: Reports: No symptoms Eyes: Reports: No symptoms Ears, Nose, Mouth, Throat: Reports: No symptoms Respiratory: Reports: Cough Cardiac: Reports: No symptoms GI: Reports: No symptoms : Reports: No symptoms Musculoskeletal: Reports: No symptoms Skin: Reports: No symptoms Neurological: Reports: No symptoms Endocrine: Reports: No symptoms Hematologic/Lymphatic: Reports: No symptoms All Other Systems: Reviewed and Negative Past Medical History - Past Medical History Previously Healthy: Yes Endocrine: Reports: None Cardiovascular: Reports: None Respiratory: Reports: COPD Hematological: Reports: None Gastrointestinal: Reports: None Genitourinary: Reports: None Neuro/Psych: Reports: None Musculoskeletal: Reports: None Cancer: Reports: None - Surgical History General Surgical History: Reports: None - Family History Family History: Reports: None - Social History Smoking Status: Former smoker Hx Substance Use: No Alcohol Screening: None Physical Exam - Physical Exam Appearance: Well-appearing, No pain distress, Well-nourished Eyes: TUSHAR, EOMI, Conjunctiva clear ENT: Ears normal, Nose normal, Oropharynx normal Respiratory: Rhonchi Cardiovascular: RRR, Pulses normal, No rub, No murmur GI/: Soft, Nontender, No masses, Bowel sounds normal, No Organomegaly Musculoskeletal: Normal strength, ROM intact, No edema, No calf tenderness Skin: Warm, Dry, Normal color Neurological: Sensation intact, Motor intact, Reflexes intact, Cranial nerves intact, Alert, Oriented Psychiatric: Affect appropriate, Mood appropriate Interpretation - Radiology Interpretation Radiology Interpretation By: Radiologist Radiology Results: Positive (BILATERAL PNEUMONIA) Physician Notification - Case Discussed Physician Notified: PMD Time of Notification: 11:44 Critical Care Note - Critical Care Note Total Time (mins): 0 Course - Course Hematology/Chemistry: 10/16/18 10:30 10/16/18 10:30 Orders, Labs, Meds: Lab Review 10/16/18 10/16/18 10/16/18 10:20 10:30 10:30 WBC 22.30 H RBC 4.32 L Hgb 12.9 L Hct 38.8 L MCV 89.8 MCH 29.9 MCHC 33.2 RDW Coeff of Lanette 13.5 Plt Count 390 Immature Gran % (Auto) 0.5 Neut % (Auto) 82.6 Lymph % (Auto) 8.8 L Sac % (Auto) 7.6 Eos % (Auto) 0.1 Baso % (Auto) 0.4 Immature Gran # (Auto) 0.1 Neut # (Auto) 18.4 H Lymph # (Auto) 2.0 Sac # (Auto) 1.7 Eos # (Auto) 0.0 Baso # (Auto) 0.1 Puncture Site R rad O2 Saturation 93.0 L ABG pH 7.485 H ABG pCO2 35.2 ABG pO2 62.0 L ABG HCO3 26.6 H ABG Total CO2 28 ABG Base Excess 3 H Wilian Test + FiO2 % 21.0 Sodium 135.9 Potassium 3.31 L Chloride 96.8 L Carbon Dioxide 26.7 Anion Gap 15.71 BUN 8.3 L Creatinine 0.67 Estimated GFR (MDRD) 118.00 BUN/Creatinine Ratio 12.38 Glucose 113.7 H Lactic Acid Calcium 8.50 Total Bilirubin 0.89 AST 14.3 L ALT 14.1 Alkaline Phosphatase 72.9 Total Creatine Kinase < 20.0 L Troponin I < 0.012 Total Protein 7.63 Albumin 4.14 Globulin 3.49 Albumin/Globulin Ratio 1.18 Procalcitonin Influ A Molecular Assay Influ B Molecular Assay 10/16/18 10/16/18 10/16/18 10:30 10:30 10:40 WBC RBC Hgb Hct MCV MCH MCHC RDW Coeff of Lanette Plt Count Immature Gran % (Auto) Neut % (Auto) Lymph % (Auto) Sac % (Auto) Eos % (Auto) Baso % (Auto) Immature Gran # (Auto) Neut # (Auto) Lymph # (Auto) Sac # (Auto) Eos # (Auto) Baso # (Auto) Puncture Site O2 Saturation ABG pH ABG pCO2 ABG pO2 ABG HCO3 ABG Total CO2 ABG Base Excess Wilian Test FiO2 % Sodium Potassium Chloride Carbon Dioxide Anion Gap BUN Creatinine Estimated GFR (MDRD) BUN/Creatinine Ratio Glucose Lactic Acid 0.85 Calcium Total Bilirubin AST ALT Alkaline Phosphatase Total Creatine Kinase Troponin I Total Protein Albumin Globulin Albumin/Globulin Ratio Procalcitonin 0.12 Influ A Molecular Assay Negative by naat Influ B Molecular Assay Negative by naat Orders Category Date Time Status ABG DRAW REQUEST Stat CARDIO 10/16/18 10:12 Ordered EKG-(ED ONLY) Stat CARDIO 10/16/18 10:12 Ordered EKG-(IP & OP ONLY) DAILY CARDIO 10/17/18 06:00 Ordered EKG-(IP & OP ONLY) DAILY CARDIO 10/18/18 06:00 Ordered EKG-(IP & OP ONLY) DAILY CARDIO 10/19/18 06:00 Ordered NEBULIZER TREATMENT Stat CARDIO 10/16/18 10:13 Ordered NEBULIZER TREATMENT Stat CARDIO 10/16/18 11:40 Ordered OXYGEN Routine CARDIO 10/16/18 11:41 Ordered ACTIVITY .BR with BRP CARE 10/16/18 11:40 Ordered BLOOD GLUCOSE MONITORING ACCUCHECK Q6H CARE 10/16/18 11:40 Ordered VITAL SIGNS Q4HR CARE 10/16/18 11:40 Ordered REGULAR DIET DIETARY 10/16/18 Lunch Ordered ED IV/MEDIPORT/POWERPORT .ONCE EMERGENCY 10/16/18 10:12 Ordered ABG Stat LAB 10/16/18 10:12 Ordered BLOOD CULTURE Stat LAB 10/16/18 10:13 Ordered CBC W/ AUTO DIFF DAILY@0600 LAB 10/17/18 06:00 Ordered CBC W/ AUTO DIFF DAILY@0600 LAB 10/18/18 06:00 Ordered CBC W/ AUTO DIFF Stat LAB 10/16/18 10:12 Ordered COMPREHENSIVE METABOLIC PANEL DAILY@0600 LAB 10/17/18 06:00 Ordered COMPREHENSIVE METABOLIC PANEL DAILY@0600 LAB 10/18/18 06:00 Ordered COMPREHENSIVE METABOLIC PANEL Stat LAB 10/16/18 10:12 Ordered CREATINE KINASE Q8H LAB 10/16/18 17:45 Ordered CREATINE KINASE Q8H LAB 10/17/18 01:45 Ordered CREATINE KINASE Stat LAB 10/16/18 10:12 Ordered FLU A/B MOLECULAR Stat LAB 10/16/18 10:12 Uncollected LACTIC ACID Stat LAB 10/16/18 10:13 Ordered MOLECULAR GROUP A STREP Stat LAB 10/16/18 10:12 Uncollected PROCALCITONIN Stat LAB 10/16/18 10:13 Ordered TROPONIN I Q8H LAB 10/16/18 17:45 Ordered TROPONIN I Q8H LAB 10/17/18 01:45 Ordered TROPONIN I Stat LAB 10/16/18 10:12 Ordered 0.9 % Sodium Chloride [Saline Flush] MEDS 10/16/18 10:12 Ordered 1 syr IVF PRN PRN Carvedilol [Coreg] MEDS 10/16/18 21:00 Ordered 3.125 mg PO BID Ceftriaxone Sodium [Rocephin] 1 gm MEDS 10/17/18 09:00 Ordered 0.9 % Sodium Chloride [Sodium Chloride] 50 ml IV DAILY Ceftriaxone Sodium [Rocephin] 2 gm MEDS 10/16/18 11:36 Ordered 0.9 % Sodium Chloride [Sodium Chloride] 100 ml IV ONCE Ipratropium/Albuterol Neb [Duoneb] MEDS 10/16/18 10:13 Stat 1 vial NEB ONCE STA Ipratropium/Albuterol Neb [Duoneb] MEDS 10/16/18 12:00 Ordered 1 vial NEB RTQ6H Isosorbide Mononitrate [Imdur] MEDS 10/17/18 09:00 Ordered 30 mg PO DAILY Levofloxacin/D5w [Levaquin] 500 mg MEDS 10/16/18 12:00 Ordered Premix 100 ml D5w 1 bag IV DAILY Methylprednisolone Sod Succ/Pf [Solu-Medrol 125 mg] MEDS 10/16/18 10:13 Stat 125 mg IVP ONCE STA Methylprednisolone Sod Succ/Pf [Solu-Medrol 40 mg] MEDS 10/16/18 21:00 Ordered 40 mg IVP Q12HR Sodium Chloride 0.9% [Sodium Chloride] 1,000 ml MEDS 10/16/18 12:00 Ordered IV 75 mls/hr CT CHEST W/O CONTRAST Stat RADS 10/16/18 10:14 Ordered Medications Generic Name Dose Route Start Last Admin Trade Name Freq PRN Reason Stop Dose Admin Albuterol/Ipratropium 1 vial 10/16/18 12:00 Sepideh [place] RTQ6H LIDA Carvedilol 3.125 mg 10/16/18 21:00 Coreg PO BID LIDA Ceftriaxone Sodium 2 gm/ 100 mls @ 100 mls/hr 10/16/18 11:36 Sodium Chloride IV 10/16/18 12:35 ONCE STA Ceftriaxone Sodium 1 gm/ 50 mls @ 75 mls/hr 10/17/18 09:00 Sodium Chloride IV 10/20/18 08:59 DAILY LIDA Levofloxacin/Dextrose 500 mg/ 100 mls @ 100 mls/hr 10/16/18 12:00 Dextrose IV 10/19/18 11:59 DAILY LIDA Sodium Chloride 1,000 mls @ 75 mls/hr 10/16/18 12:00 Sodium Chloride IV .[id number] LIDA Isosorbide Mononitrate 30 mg 10/17/18 09:00 Imdur PO DAILY LIDA Methylprednisolone Sodium Succinate 40 mg 10/16/18 21:00 Solu-Medrol 40 Mg IVP Q12HR LIDA Sodium Chloride 1 syr 10/16/18 10:12 10/16/18 10:41 Saline Flush IVF 1 syr PRN PRN Administration To flush IV Discontinued Medications Generic Name Dose Route Start Last Admin Trade Name Freq PRN Reason Stop Dose Admin Albuterol/Ipratropium 1 vial 10/16/18 10:13 10/16/18 10:22 Sepideh [place] 10/16/18 10:14 1 vial ONCE STA Administration Methylprednisolone Sodium Succinate 125 mg 10/16/18 10:13 10/16/18 10:40 Solu-Medrol 125 Mg IVP 10/16/18 10:14 125 mg ONCE STA Administration Vital Signs: Temp Pulse Resp BP Pulse Ox 10/16/18 09:55 99.3 F 95 H 20 137/80 84 L Departure - Departure Time of Disposition: 11:45 Disposition: HOME SELF-CARE Discharge Problem: Pneumonia Qualifiers: Aspiration pneumonia type: unspecified Laterality: bilateral Instructions: Pneumonitis (ED) Condition: Good Pt referred to PMD for follow-up: Yes IPMP verified?: No Allergies/Adverse Reactions: Allergies No Known Allergies Allergy (Verified 10/16/18 09:59) Home Medications: Ambulatory Orders Ipratropium/Albuterol Sulfate [Duoneb 0.5 mg-3 mg/3 ml Soln] 3 ml IH TID PRN 07/11 Carvedilol [Coreg] 3.125 mg PO BID #60 tablet 07/06/18 Budesonide 0.5 mg IH TID PRN 10/16/18 Isosorbide Mononitrate [Imdur] 30 mg PO DAILY 10/16/18 Disposition Discussed With: Patient
[2018-10-16] MEDS ORDERED: ROCEPHIN ONE (11:50)
[2018-10-16] MEDS: SODIUM CHLORIDE 1,000 ML IV SCH (12:04)
[2018-10-16] MEDS: DUONEB NEB SCH ×3 (12:28→23:10)
[2018-10-16] MEDS: LEVAQUIN 500 MG in PREMIX 100 ML D5W 1 BAG IV SCH ×2 (12:28→13:24)
[2018-10-16 12:36] VITALS: BMI 25.7
[2018-10-16] MEDS: COREG PO SCH (16:52)
[2018-10-16] MEDS ORDERED: SOLU-MEDROL 40 MG IVP SCH (21:00)
[2018-10-17] MEDS: SODIUM CHLORIDE 1,000 ML IV SCH ×2 (01:34→17:00)
[2018-10-17] MEDS: DUONEB NEB SCH (04:45)
[2018-10-17] MEDS: COREG PO SCH ×2 (08:00→17:00)
[2018-10-17] MEDS ORDERED: K-DUR PO STA (08:33)
[2018-10-17] MEDS ORDERED: COREG PO ONE (08:39)
[2018-10-17] MEDS: ROCEPHIN 1 GM in SODIUM CHLORIDE 50 ML IV SCH (08:58)
[2018-10-17] MEDS ORDERED: SOLU-MEDROL 40 MG IVP SCH (09:00)
[2018-10-17] MEDS: THIAMINE PO SCH (09:02)
[2018-10-17] MEDS: IMDUR PO SCH (09:02)
[2018-10-17] MEDS: LIBRIUM PO SCH ×3 (09:03→20:26)
[2018-10-17] MEDS: LEVAQUIN 500 MG in PREMIX 100 ML D5W 1 BAG IV SCH (09:04)
--- NOTE | 2018-10-17 09:38 | PCM.PROG ---
Attending Provider: ATTENDING PROVIDER: Dr. MERCY COOPER This patient is seen with Anabel Bradshaw, Nurse Practitioner. DATE OF SERVICE: 10/17/18 SUBJECTIVE: This 67 year old WHITE/ M was hospitalized 10/16/18. The patient is lying in bed resting comfortably. No shortness of breath with 02, in no distress. REVIEW OF SYSTEMS: CONSTITUTIONAL: No night sweats. No fatigue, malaise, lethargy. No fever or chills. HEENT: Eyes: No visual changes. No eye pain. No eye discharge. ENT: No runny nose. No epistaxis. No sinus pain. No odynophagia. No congestion. RESPIRATORY: Cough, productive. No hemoptysis. No shortness of breath. CARDIOVASCULAR: No angina symptoms. No CHF symptoms. No atypical chest pain for CAD. No palpitations. No orthopnea.. GASTROINTESTINAL: No abdominal pain. No nausea or vomiting. No diarrhea or constipation. No hematemesis. No hematochezia. GENITOURINARY: No urgency. No frequency. No dysuria. No hematuria. No obstructive symptoms. No discharge. No pain. No significant abnormal bleeding. MUSCULOSKELETAL: No musculoskeletal pain; no joint swelling. NEUROLOGICAL: Awake, alert, oriented to time, place and person. No headache. No neck pain. No syncope. No seizures. No dizziness. PSYCHIATRIC: Not anxious. No depression. No suicidal thoughts. No homicidal thoughts. SKIN: No rash. No lesions. No wounds. ENDOCRINE: No unexplained weight loss. No weight gain. HEMATOLOGIC/LYMPHATIC: No anemia. No purpura. No petechiae. No prolonged or excessive bleeding. No palpable lymph nodes. PHYSICAL EXAMINATION: GENERAL: The patient is awake, alert and oriented, lying in bed in no distress. VITAL SIGNS: Temperature 97.5 F, Pulse 81, Respiratory Rate 24, BP 156/87, Pulse Ox 94% HEENT: Head normocephalic, atraumatic. Eyes: Extraocular muscles are intact. Pupils are equal, round and reactive to light and accommodation. Ears: No lesions. Nose appeared normal. Throat: No exudate or erythema. NECK: Supple. No JVD, no carotid bruit. No lymphadenopathy or thyromegaly. LUNGS: Diminished breath sounds, bilateral rales. Percussion note normal. Chest symmetrical. HEART: S1, S2, no S3. No murmurs. No cyanosis or clubbing. No ascites. Pulses: Dorsalis pedis and posterior tibial pulses +1 to +2 both sides. ABDOMEN: Soft. Non-tender. Bowel sounds active. No CVA tenderness. No mass felt. EXTREMITIES: No edema. Full range of motion of all extremities, equal. NEUROLOGIC: No focal deficit. Cranial nerves II through XII are grossly intact. No headache, no double vision or headache. SKIN: Not dry. Intact. Turgor-normal. LYMPHATIC: No palpable lymph nodes/no lymphedema. MUSCULOSKELETAL: Normal joints with no swelling. Muscle tone is normal. LAB REVIEW: 10/17/18 01:50 10/17/18 01:50 10/17/18 01:50: WBC 13.22 H D, RBC 4.05 L, Hgb 12.1 L, Hct 36.0 L, MCV 88.9, MCH 29.9, MCHC 33.6, RDW Coeff of Lanette 13.2, Plt Count 359, Immature Gran % (Auto ) 0.7, Neut % (Auto) 90.9, Lymph % (Auto) 6.5 L, [place] % (Auto) 1.8, Eos % (Auto ) 0.0, Baso % (Auto) 0.1, Immature Gran # (Auto) 0.1, Neut # (Auto) 12.0 H, Lymph # (Auto) 0.9, [place] # (Auto) 0.2 L, Eos # (Auto) 0.0, Baso # (Auto) 0.0 10/17/18 01:50: Sodium 136.1, Potassium 3.36 L, Chloride 99.0, Carbon Dioxide 28.4, Anion Gap 12.06, BUN 12.1, Creatinine 0.64, Estimated GFR (MDRD) 124.00, BUN/Creatinine Ratio 18.90, Glucose 232.5 H D, Calcium 8.57, Total Bilirubin 0.24, AST 14.7 L, ALT 14.0, Alkaline Phosphatase 66.2, Total Creatine Kinase 28.7 L, Troponin I 0.014, Total Protein 7.05, Albumin 3.68, Globulin 3.37, Albumin/Globulin Ratio 1.09 10/16/18 18:00: Total Creatine Kinase 27.8 L, Troponin I < 0.012 10/16/18 10:40: Influ A Molecular Assay Negative by naat, Influ B Molecular Assay Negative by naat 10/16/18 10:30: Lactic Acid 0.85 10/16/18 10:30: Procalcitonin 0.12 10/16/18 10:30: Sodium 135.9, Potassium 3.31 L, Chloride 96.8 L, Carbon Dioxide 26.7, Anion Gap 15.71, BUN 8.3 L, Creatinine 0.67, Estimated GFR (MDRD) 118.00, BUN/Creatinine Ratio 12.38, Glucose 113.7 H, Calcium 8.50, Total Bilirubin 0.89 , AST 14.3 L, ALT 14.1, Alkaline Phosphatase 72.9, Total Creatine Kinase < 20.0 L, Troponin I < 0.012, Total Protein 7.63, Albumin 4.14, Globulin 3.49, Albumin/ Globulin Ratio 1.18 10/16/18 10:30: WBC 22.30 H, RBC 4.32 L, Hgb 12.9 L, Hct 38.8 L, MCV 89.8, MCH 29.9, MCHC 33.2, RDW Coeff of [place]ette 13.5, Plt Count 390, Immature Gran % (Auto) 0.5, Neut % (Auto) 82.6, Lymph % (Auto) 8.8 L, [place] % (Auto) 7.6, Eos % (Auto) 0.1, Baso % (Auto) 0.4, Immature Gran # (Auto) 0.1, Neut # (Auto) 18.4 H, Lymph # (Auto) 2.0, [place] # (Auto) 1.7, Eos # (Auto) 0.0, Baso # (Auto) 0.1 10/16/18 10:20: Puncture Site R rad, O2 Saturation 93.0 L, ABG pH 7.485 H, ABG pCO2 35.2, ABG pO2 62.0 L, ABG HCO3 26.6 H, ABG Total CO2 28, ABG Base Excess 3 H, Wilian Test +, FiO2 % 21.0 ASSESSMENT: 1. Bilateral pneumonia 2. Severe COPD 3. CAD 4. Smoker 5. Alcohol abuse PLAN: 1. Xopenex t.i.d. 2. Increase Coreg 6.25 mg twice a day. 3. Decrease IV fluids to 50 cc/hr. 4. Potassium 40 mEq this morning. 5. Librium 5 mg t.i.d. LIDA. 6. Increase Solu-Medrol to 100 mg t.i.d. Plan and coordination of the patient's care discussed in the presence of Ice Carver and nurse. CONDITION: Stable SCRIBED BY: DENISHA STEPHENS Complex Manager scribed while in presence of service performed by Dr. Cooper/Anabel Bradshaw APRN on 10/17/18 ([id number])
[2018-10-17] MEDS: XOPENEX 1.25 MG NEB SCH ×2 (14:08→19:35)
[2018-10-17] MEDS: SOLU-MEDROL 125 MG IVP SCH ×2 (15:11→20:25)
[2018-10-17] MEDS ORDERED: COREG PO SCH (17:30)
[2018-10-18] MEDS: SOLU-MEDROL 125 MG IVP SCH ×3 (04:47→20:10)
[2018-10-18] MEDS: XOPENEX 1.25 MG NEB SCH ×3 (04:50→20:00)
--- NOTE | 2018-10-18 07:36 | PN ---
DATE OF SERVICE: 10/16/18 SUBJECTIVE: The patient was seen and examined today. He was hospitalized to room 115. The patient's was present in the room complaining of cough and congestion. The patient was seen a couple of weeks ago with cough and congestion in the office on 09/18/18 and was given antibiotics, Z-pack and steroids and Decadron shot. His condition improved but now he is feeling tired. he was seen and examined in the ER where he was diagnosed to have pneumonia. REVIEW OF SYSTEMS: CONSTITUTIONAL: No night sweats. No fatigue, malaise, lethargy. No fever or chills. HEENT: Eyes: No visual changes. No eye pain. No eye discharge. ENT: No runny nose. No epistaxis. No sinus pain. No sore throat. No odynophagia. No congestion. RESPIRATORY: No cough, no congestion. No hemoptysis. No shortness of breath. CARDIOVASCULAR: No angina symptoms. No CHF symptoms. No atypical chest pain for CAD. No palpitations. No PND. No orthopnea. GASTROINTESTINAL: No abdominal pain. No nausea or vomiting. No diarrhea or constipation. No hematemesis. No hematochezia. GENITOURINARY: No urgency. No frequency. No dysuria. No hematuria. No obstructive symptoms. No discharge. No pain. No significant abnormal bleeding. MUSCULOSKELETAL: No musculoskeletal pain; no joint swelling. NEUROLOGICAL: No headache. No neck pain. No syncope. No seizures. No dizziness. PSYCHIATRIC: Not anxious. No depression. No suicidal thoughts. No homicidal thoughts. SKIN: No rash. No lesions. No wounds. ENDOCRINE: No unexplained weight loss. No weight gain. HEMATOLOGIC/LYMPHATIC: No anemia. No purpura. No petechiae. No prolonged or excessive bleeding. No palpable lymph nodes. PHYSICAL EXAMINATION: GENERAL: The patient is oriented to time, place and person HEENT: Head normocephalic, atraumatic. Eyes: Extraocular muscles are intact. Pupils are equal, round and reactive to light and accommodation. Ears: No lesions. Nose appeared normal. Throat: No exudate or erythema. NECK: Supple. No JVD, no carotid bruit. No lymphadenopathy or thyromegaly. LUNGS: Decreased breath sounds with bilateral wheeze. He says that he quit smoking July 16 but he is sneaking around. He started drinking alcohol. Clear to auscultation. Percussion note normal. Chest symmetrical. HEART: S1, S2, no S3. No murmurs. No cyanosis or clubbing. No ascites. Pulses: Dorsalis pedis and posterior tibial pulses +1 to +2 bilaterally. ABDOMEN: Soft. Nontender. Bowel sounds active. No CVA tenderness. No mass felt. EXTREMITIES: No edema. Full range of motion of all extremities, equal. NEUROLOGIC: No focal deficit. Cranial nerves II through XII are grossly intact. No headache, no double vision or headache. SKIN: Not dry. Intact. Turgor - normal. LYMPHATIC: No palpable lymph nodes/no lymphedema. MUSCULOSKELETAL: Normal joints with no swelling. Muscle tone is normal. ASSESSMENT: 1. Acute pneumonitis bilateral 2. History of coronary bypass surgery in 1999 3. Cardiac cath 07/[address] Easley 4. Non compliance of lifestyle, medications 5. COPD with history of heavy smoking 6. Hypertension 7. Peripheral arterial disease 8. Anemia 9. Bronchitis PLAN: 1. Use double antibiotics Rocephin and Azithromycin 2. Steroids 3. NEBS treatment 4. IV fluids 5. Telemetry CONDITION: Stable PROGNOSIS: Guarded. TIME SPENT: More than 30 minutes. Plan and coordination of the patient's care discussed in the presence of nurse. VIET
--- NOTE | 2018-10-18 07:47 | PN ---
DATE OF SERVICE: 10/17/18 SUBJECTIVE: The patient was seen and examined with the Nurse Practitioner. His condition is improving and coughing much less and feeling better. Appetite has improved. PHYSICAL EXAMINATION: HEENT: Head normocephalic, atraumatic. Eyes: Extraocular muscles are intact. Pupils are equal, round and reactive to light and accommodation. Ears: No lesions. Nose appeared normal. Throat: No exudate or erythema. NECK: Supple. No JVD, no carotid bruit. No lymphadenopathy or thyromegaly. LUNGS: Decreased breath sounds. Clear to auscultation. Percussion note normal. Chest symmetrical. HEART: S1, S2, no S3. No murmurs. No cyanosis or clubbing. No ascites. Pulses: Dorsalis pedis and posterior tibial pulses +1 to +2 bilaterally. ABDOMEN: Soft. Nontender. Bowel sounds active. No CVA tenderness. No mass felt. EXTREMITIES: No edema. Full range of motion of all extremities, equal. NEUROLOGIC: No focal deficit. Cranial nerves II through XII are grossly intact. No headache, no double vision or headache. SKIN: Not dry. Intact. Turgor - normal. LYMPHATIC: No palpable lymph nodes/no lymphedema. MUSCULOSKELETAL: Normal joints with no swelling. Muscle tone is normal. PLAN: 1. Continue IV antibiotics 2. Steroids 3. NEBS 4. Counseling for alcohol done, no DTs noted CONDITION: Stable. TIME SPENT: More than 30 minutes. Plan and coordination of the patient's care discussed in the presence of nurse. VIET
[2018-10-18] MEDS: THIAMINE PO SCH (08:24)
--- NOTE | 2018-10-18 08:24 | PCM.PROG ---
Attending Provider: ATTENDING PROVIDER: Dr. MERCY COOPER This patient is seen with Anabel Bradshaw, Nurse Practitioner. DATE OF SERVICE: 10/18/18 SUBJECTIVE: This 67 year old WHITE/ M was hospitalized 10/16/18. The patient is lying in bed resting comfortably. He is less congested but more wheezing today and slightly more short of breath. REVIEW OF SYSTEMS: CONSTITUTIONAL: No night sweats. No fatigue, malaise, lethargy. No fever or chills. HEENT: Eyes: No visual changes. No eye pain. No eye discharge. ENT: No runny nose. No epistaxis. No sinus pain. No odynophagia. No congestion. RESPIRATORY: Cough and wheezing. No hemoptysis. No shortness of breath. CARDIOVASCULAR: No angina symptoms. No CHF symptoms. No atypical chest pain for CAD. No palpitations. No orthopnea.. GASTROINTESTINAL: No abdominal pain. No nausea or vomiting. No diarrhea or constipation. No hematemesis. No hematochezia. GENITOURINARY: No urgency. No frequency. No dysuria. No hematuria. No obstructive symptoms. No discharge. No pain. No significant abnormal bleeding. MUSCULOSKELETAL: No musculoskeletal pain; no joint swelling. NEUROLOGICAL: Awake, alert, oriented to time, place and person. No headache. No neck pain. No syncope. No seizures. No dizziness. PSYCHIATRIC: Not anxious. No depression. No suicidal thoughts. No homicidal thoughts. SKIN: No rash. No lesions. No wounds. ENDOCRINE: No unexplained weight loss. No weight gain. HEMATOLOGIC/LYMPHATIC: No anemia. No purpura. No petechiae. No prolonged or excessive bleeding. No palpable lymph nodes. PHYSICAL EXAMINATION: GENERAL: The patient is awake, alert and oriented, lying in bed in no distress. VITAL SIGNS: Temperature 97.6 F, Pulse 80, Respiratory Rate 22, BP 154/78, Pulse Ox 89% HEENT: Head normocephalic, atraumatic. Eyes: Extraocular muscles are intact. Pupils are equal, round and reactive to light and accommodation. Ears: No lesions. Nose appeared normal. Throat: No exudate or erythema. NECK: Supple. No JVD, no carotid bruit. No lymphadenopathy or thyromegaly. LUNGS: Diminished breath sounds, bilateral wheeze and rhonchi. Percussion note normal. Chest symmetrical. HEART: S1, S2, no S3. No murmurs. No cyanosis or clubbing. No ascites. Pulses: Dorsalis pedis and posterior tibial pulses +1 to +2 both sides. ABDOMEN: Soft. Non-tender. Bowel sounds active. No CVA tenderness. No mass felt. EXTREMITIES: No edema. Full range of motion of all extremities, equal. NEUROLOGIC: No focal deficit. Cranial nerves II through XII are grossly intact. No headache, no double vision or headache. SKIN: Not dry. Intact. Turgor-normal. LYMPHATIC: No palpable lymph nodes/no lymphedema. MUSCULOSKELETAL: Normal joints with no swelling. Muscle tone is normal. LAB REVIEW: 10/18/18 05:00 10/18/18 05:00 10/18/18 05:00: Sodium 140.7, Potassium 3.74, Chloride 104.2, Carbon Dioxide 28.0, Anion Gap 12.24, BUN 12.0, Creatinine 0.61, Estimated GFR (MDRD) 131.00, BUN/Creatinine Ratio 19.67, Glucose 191.7 H, Calcium 8.63, Total Bilirubin 0.14 L, AST 15.4 L, ALT 16.0, Alkaline Phosphatase 63.8, Total Protein 6.61, Albumin 3.40 L, Globulin 3.21, Albumin/Globulin Ratio 1.05 10/18/18 05:00: WBC 20.21 H D, RBC 4.07 L, Hgb 12.2 L, Hct 36.8 L, MCV 90.4, MCH 30.0, MCHC 33.2, RDW Coeff of Lanette 13.3, Plt Count 408, Immature Gran % (Auto ) 0.8, Neut % (Auto) 92.1, Lymph % (Auto) 5.4 L, [place] % (Auto) 1.6, Eos % (Auto ) 0.0, Baso % (Auto) 0.1, Immature Gran # (Auto) 0.2, Neut # (Auto) 18.6 H, Lymph # (Auto) 1.1, [place] # (Auto) 0.3 L, Eos # (Auto) 0.0, Baso # (Auto) 0.0 ASSESSMENT: 1. Bilateral pneumonia 2. Severe COPD 3. CAD 4. Smoker 5. Alcohol abuse PLAN: 1. Increase Solu-Medrol 125 mg IV q.8hr 2. Oxygen 1 to 2L 3. Repeat chest x-ray 4. Pulmicort one twice a day Plan and coordination of the patient's care discussed in the presence of Computer Tester and nurse. CONDITION: Stable SCRIBED BY: DENISHA STEPHENS Fire Sprinkler Service Technician scribed while in presence of service performed by Dr. Cooper/Anabel Bradshaw APRN on 10/18/18 ([id number])
[2018-10-18] MEDS: LIBRIUM PO SCH ×3 (08:25→20:10)
[2018-10-18] MEDS: COREG PO SCH ×2 (08:25→16:38)
[2018-10-18] MEDS: IMDUR PO SCH (08:25)
[2018-10-18] MEDS: ROCEPHIN 1 GM in SODIUM CHLORIDE 50 ML IV SCH (09:06)
[2018-10-18] MEDS: LEVAQUIN 500 MG in PREMIX 100 ML D5W 1 BAG IV SCH (09:57)
--- NOTE | 2018-10-18 13:19 | HP ---
DATE OF SERVICE: 10/16/18 REASON FOR HOSPITALIZATION/HISTORY OF PRESENT ILLNESS: 67 year old white male who presents to the emergency room complaining of shortness of breath, productive cough. He has a long history of COPD. PAST MEDICAL HISTORY: COPD Noncompliance Alcohol abuse Generalized osteoarthritis Peripheral arterial disease Hypertension Sleep Apnea History of anemia Smoker PAST SURGICAL HISTORY: Cardiac cath 07/16 which was normal CABG 1999 Dr. Ram History of fracture of the right leg with surgery in 2010 REVIEW OF SYSTEMS: CONSTITUTIONAL: No night sweats. No fatigue, malaise, lethargy. Low grade fever. Weakness. HEENT: Eyes: No visual changes. No eye pain. No eye discharge. ENT: No runny nose. No epistaxis. No sinus pain. No sore throat. No odynophagia. No ear pain. No congestion. RESPIRATORY: Cough, no congestion. No hemoptysis. Shortness of breath. CARDIOVASCULAR: No angina symptoms. No CHF symptoms. No atypical chest pain for CAD. No palpitations. No PND. No orthopnea. GASTROINTESTINAL: No abdominal pain. No nausea or vomiting. No diarrhea or constipation. No hematemesis. No hematochezia. GENITOURINARY: No urgency. No frequency. No dysuria. No hematuria. No obstructive symptoms. No discharge. No pain. No significant abnormal bleeding. MUSCULOSKELETAL: No musculoskeletal pain. No joint swelling. No arthritis. NEUROLOGICAL: No headache. No neck pain. No syncope. No seizures. No dizziness. PSYCHIATRIC: Not anxious. No depression. No suicidal thoughts. No homicidal thoughts. SKIN: No rash. No lesions. No wounds. ENDOCRINE: No unexplained weight loss. No weight gain. HEMATOLOGIC/LYMPHATIC: No anemia. No purpura. No petechiae. No prolonged or excessive bleeding. No palpable lymph nodes. PERSONAL/FAMILY/SOCIAL HISTORY: The patient is and he is a heavy smoker. He drinks alcohol and he lives at home with his . MEDICATIONS: DUO NEBS 3ml IH three times a day PRN Coreg 3.125 mg PO twice a day Imdur 30mg PO daily Budesonide 0.5mg IG three times a day PRN ALLERGIES: No known allergies PHYSICAL EXAMINATION: GENERAL: The patient is alert and oriented in mild distress. VITAL SIGNS: Temperature 99.3, heart rate 95, respiratory rate 20, blood pressure 137/80, pulse ox 84% on room air. HEENT: Head normocephalic, atraumatic. Eyes: Extraocular muscles are intact. Pupils are equal, round and reactive to light and accommodation. Ears: No lesions. Nose appeared normal. Throat: No exudate or erythema. NECK: Supple. No JVD, no carotid bruit. No lymphadenopathy or thyromegaly. LUNGS: Significant diminished breath sounds bilaterally with mild expiratory wheezing. Clear to auscultation. Percussion note normal. Chest symmetrical. HEART: S1, S2, no S3. No murmurs. No cyanosis or clubbing. No ascites. Pulses: Dorsalis pedis and posterior tibial pulses +1 to +2 bilaterally. ABDOMEN: Soft. Nontender. Bowel sounds active. No CVA tenderness. No mass felt. EXTREMITIES: No edema. Full range of motion of all extremities, equal. NEUROLOGIC: No focal deficit. Cranial nerves II through XII are grossly intact. No headache, no double vision or headache. SKIN: Not dry. Intact. Turgor - normal. LYMPHATIC: No palpable lymph nodes/no lymphedema. MUSCULOSKELETAL: Normal joints with no swelling. Muscle tone is normal. LABS: CT scan revealed bilateral pneumonia with ground glass which is consistent with previous as far as ground glass and chronic changes. WBC 22.3, hgb 12.9, hct 38.8, plt count 390, sodium 135, potassium 3.3, BUN 8.3, creatinine 0.67, glucose 113. ABG's on room air O2 sat 93, pH 7.485, pCo2 35, pO2 62, bicarb 26.6 , total CO2 28, base excess of 3. Troponin is negative. Total protein 7.6, AST 14, ALT 14. Influenza A and B are both negative. ASSESSMENT: 1. Acute bilateral pneumonia 2. COPD 3. Smoker 4. Heavy drinking, alcohol abuse 5. Hypertension PLAN: 1. Will admit 2. Routine telemetry orders 3. CBC and CMP daily 4. Start Xopenex 1.25mg three times a day scheduled 5. Solu-Medrol 100mg IV Q 8 hours 6. Rocephin 1 gram IV daily 7. Sputum for culture and sensitivity 8. Tylenol 500mg PO Q 4-6 hours PRN for fever greater than 100. 9. O2 1-2 liters as needed 10. Start Librium 5mg three times a day scheduled 11. Continue all home medications 12. IV fluids normal saline at 75cc an hour Will follow him closely. TIME SPENT: More than 70 minutes. VIET
[2018-10-18] MEDS: PULMICORT 1 MG/2 ML NEB SCH ×2 (13:30→20:00)
[2018-10-18] MEDS: SODIUM CHLORIDE 1,000 ML IV SCH (14:26)
[2018-10-19] MEDS: PULMICORT 1 MG/2 ML NEB SCH ×2 (04:45→20:12)
[2018-10-19] MEDS: XOPENEX 1.25 MG NEB SCH ×3 (04:45→20:12)
[2018-10-19] MEDS: SOLU-MEDROL 125 MG IVP SCH ×3 (04:49→20:17)
--- NOTE | 2018-10-19 08:17 | PCM.PROG ---
Attending Provider: ATTENDING PROVIDER: Dr. MERCY COOPER This patient is seen with Anabel Bradshaw, Nurse Practitioner. DATE OF SERVICE: 10/19/18 SUBJECTIVE: This 67 year old WHITE/ M was hospitalized 10/16/18. The patient is lying in bed resting comfortably. Wheezing has slightly improved. He has been eating well. REVIEW OF SYSTEMS: CONSTITUTIONAL: No night sweats. No fatigue, malaise, lethargy. No fever or chills. HEENT: Eyes: No visual changes. No eye pain. No eye discharge. ENT: No runny nose. No epistaxis. No sinus pain. No odynophagia. No congestion. RESPIRATORY: Cough and wheezing. No hemoptysis. No shortness of breath. CARDIOVASCULAR: No angina symptoms. No CHF symptoms. No atypical chest pain for CAD. No palpitations. No orthopnea.. GASTROINTESTINAL: No abdominal pain. No nausea or vomiting. No diarrhea or constipation. No hematemesis. No hematochezia. GENITOURINARY: No urgency. No frequency. No dysuria. No hematuria. No obstructive symptoms. No discharge. No pain. No significant abnormal bleeding. MUSCULOSKELETAL: No musculoskeletal pain; no joint swelling. NEUROLOGICAL: Awake, alert, oriented to time, place and person. No headache. No neck pain. No syncope. No seizures. No dizziness. PSYCHIATRIC: Not anxious. No depression. No suicidal thoughts. No homicidal thoughts. SKIN: No rash. No lesions. No wounds. ENDOCRINE: No unexplained weight loss. No weight gain. HEMATOLOGIC/LYMPHATIC: No anemia. No purpura. No petechiae. No prolonged or excessive bleeding. No palpable lymph nodes. PHYSICAL EXAMINATION: GENERAL: The patient is awake, alert and oriented, lying/sitting in bed in no distress. VITAL SIGNS: Temperature 97.0 F, Pulse 63, Respiratory Rate 18, BP 148/80, Pulse Ox 100% HEENT: Head normocephalic, atraumatic. Eyes: Extraocular muscles are intact. Pupils are equal, round and reactive to light and accommodation. Ears: No lesions. Nose appeared normal. Throat: No exudate or erythema. NECK: Supple. No JVD, no carotid bruit. No lymphadenopathy or thyromegaly. LUNGS: Diminished breath sounds. Improved wheezing. Percussion note normal. Chest symmetrical. HEART: S1, S2, no S3. No murmurs. No cyanosis or clubbing. No ascites. Pulses: Dorsalis pedis and posterior tibial pulses +1 to +2 both sides. ABDOMEN: Soft. Non-tender. Bowel sounds active. No CVA tenderness. No mass felt. EXTREMITIES: No edema. Full range of motion of all extremities, equal. NEUROLOGIC: No focal deficit. Cranial nerves II through XII are grossly intact. No headache, no double vision or headache. SKIN: Not dry. Intact. Turgor-normal. LYMPHATIC: No palpable lymph nodes/no lymphedema. MUSCULOSKELETAL: Normal joints with no swelling. Muscle tone is normal. LAB REVIEW: 10/19/18 04:40 10/19/18 04:40 10/19/18 04:40: Sodium 145.2 H, Potassium 4.12, Chloride 102.3, Carbon Dioxide 31.4 H, Anion Gap 15.62, BUN 11.0, Creatinine 0.61, Estimated GFR (MDRD) 131.00 , BUN/Creatinine Ratio 18.03, Glucose 140.7 H D, Calcium 8.65, Total Bilirubin 0.20, AST 20.4, ALT 20.9, Alkaline Phosphatase 55.5 L, Total Protein 6.49, Albumin 3.38 L, Globulin 3.11, Albumin/Globulin Ratio 1.08 10/19/18 04:40: WBC 15.62 H, RBC 4.12 L, Hgb 12.4 L, Hct 37.6 L, MCV 91.3, MCH 30.1, MCHC 33.0, RDW Coeff of Lanette 13.3, Plt Count 431, Immature Gran % (Auto) 0.9, Neut % (Auto) 90.8, Lymph % (Auto) 6.5 L, [place] % (Auto) 1.7, Eos % (Auto) 0.0, Baso % (Auto) 0.1, Immature Gran # (Auto) 0.1, Neut # (Auto) 14.2 H, Lymph # (Auto) 1.0, [place] # (Auto) 0.3 L, Eos # (Auto) 0.0, Baso # (Auto) 0.0 ASSESSMENT: 1. Bilateral pneumonia 2. Severe COPD 3. CAD 4. Smoker 5. Alcohol abuse PLAN: 1. D/C IV fluids 2. Repeat chest x-ray Plan and coordination of the patient's care discussed in the presence of Edi Architect and nurse. CONDITION: Stable SCRIBED BY: DENISHA STEPHENS Keno Writer scribed while in presence of service performed by Dr. Cooper/Anabel Bradshaw APRN on 10/19/18 ([id number])
[2018-10-19] MEDS: THIAMINE PO SCH (08:25)
[2018-10-19] MEDS: IMDUR PO SCH (08:25)
[2018-10-19] MEDS: COREG PO SCH ×2 (08:25→16:49)
[2018-10-19] MEDS: LEVAQUIN 500 MG in PREMIX 100 ML D5W 1 BAG IV SCH (08:25)
[2018-10-19] MEDS: LIBRIUM PO SCH ×3 (08:26→20:18)
[2018-10-19] MEDS: ROCEPHIN 1 GM in SODIUM CHLORIDE 50 ML IV SCH (09:36)
--- NOTE | 2018-10-19 15:07 | DI ---
EXAM: Two views of the chest. History: Wheezing, short of breath Comparison: Chest radiograph 07/04/2018 Findings: Heart remains mildly enlarged. Sternotomy wires. Persistent but improving bibasilar lung infiltrates. No appreciable pleural fluid and no pneumothorax. No acute osseous abnormalities. At herosclerotic vascular calcifications. Impression: Improving bibasilar pneumonia
[2018-10-20] MEDS: SOLU-MEDROL 125 MG IVP SCH ×2 (04:43→12:15)
[2018-10-20] MEDS: XOPENEX 1.25 MG NEB SCH ×2 (05:05→14:01)
[2018-10-20] MEDS: PULMICORT 1 MG/2 ML NEB SCH (05:05)
--- NOTE | 2018-10-20 08:56 | PCM.PROG ---
Attending Provider: ATTENDING PROVIDER: Dr. MERCY COOPER This patient is seen with Anabel Bradshaw, Nurse Practitioner. DATE OF SERVICE: 10/20/18 SUBJECTIVE: This 67 year old WHITE/ M was hospitalized 10/16/18. The patient is lying in bed resting comfortably. Chest x-ray shows improvement. Wheezing significantly better, has been up and about walking. No problems, is eating well and no fever. REVIEW OF SYSTEMS: CONSTITUTIONAL: No night sweats. No fatigue, malaise, lethargy. No fever or chills. HEENT: Eyes: No visual changes. No eye pain. No eye discharge. ENT: No runny nose. No epistaxis. No sinus pain. No odynophagia. No congestion. RESPIRATORY: Cough. No congestion. No hemoptysis. No shortness of breath. CARDIOVASCULAR: No angina symptoms. No CHF symptoms. No atypical chest pain for CAD. No palpitations. No orthopnea.. GASTROINTESTINAL: No abdominal pain. No nausea or vomiting. No diarrhea or constipation. No hematemesis. No hematochezia. GENITOURINARY: No urgency. No frequency. No dysuria. No hematuria. No obstructive symptoms. No discharge. No pain. No significant abnormal bleeding. MUSCULOSKELETAL: No musculoskeletal pain; no joint swelling. NEUROLOGICAL: Awake, alert, oriented to time, place and person. No headache. No neck pain. No syncope. No seizures. No dizziness. PSYCHIATRIC: Not anxious. No depression. No suicidal thoughts. No homicidal thoughts. SKIN: No rash. No lesions. No wounds. ENDOCRINE: No unexplained weight loss. No weight gain. HEMATOLOGIC/LYMPHATIC: No anemia. No purpura. No petechiae. No prolonged or excessive bleeding. No palpable lymph nodes. PHYSICAL EXAMINATION: GENERAL: The patient is awake, alert and oriented, lying/sitting in bed in no distress. VITAL SIGNS: Temperature 97.7 F, Pulse 56, Respiratory Rate 20, BP 150/81, Pulse Ox 95% HEENT: Head normocephalic, atraumatic. Eyes: Extraocular muscles are intact. Pupils are equal, round and reactive to light and accommodation. Ears: No lesions. Nose appeared normal. Throat: No exudate or erythema. NECK: Supple. No JVD, no carotid bruit. No lymphadenopathy or thyromegaly. LUNGS: Diminished breath sounds with improved wheezing. Percussion note normal. Chest symmetrical. HEART: S1, S2, no S3. No murmurs. No cyanosis or clubbing. No ascites. Pulses: Dorsalis pedis and posterior tibial pulses +1 to +2 both sides. ABDOMEN: Soft. Non-tender. Bowel sounds active. No CVA tenderness. No mass felt. EXTREMITIES: No edema. Full range of motion of all extremities, equal. NEUROLOGIC: No focal deficit. Cranial nerves II through XII are grossly intact. No headache, no double vision or headache. SKIN: Not dry. Intact. Turgor-normal. LYMPHATIC: No palpable lymph nodes/no lymphedema. MUSCULOSKELETAL: Normal joints with no swelling. Muscle tone is normal. LAB REVIEW: 10/20/18 04:22 10/20/18 04:22 10/20/18 04:22: Sodium 139.5, Potassium 3.68, Chloride 100.2, Carbon Dioxide 33.9 H, Anion Gap 9.08, BUN 11.9, Creatinine 0.55 L, Estimated GFR (MDRD) 148.00 , BUN/Creatinine Ratio 21.63, Glucose 147.2 H, Calcium 8.45, Total Bilirubin 0.16 L, AST 21.9, ALT 24.8, Alkaline Phosphatase 53.4 L, Total Protein 6.34, Albumin 3.29 L, Globulin 3.05, Albumin/Globulin Ratio 1.07 10/20/18 04:22: WBC 15.08 H, RBC 4.25 L, Hgb 12.6 L, Hct 38.2 L, MCV 89.9, MCH 29.6, MCHC 33.0, RDW Coeff of Lanette 13.2, Plt Count 440, Immature Gran % (Auto) 0.5, Neut % (Auto) 88.3, Lymph % (Auto) 7.2 L, Union % (Auto) 3.9, Eos % (Auto) 0.0, Baso % (Auto) 0.1, Immature Gran # (Auto) 0.1, Neut # (Auto) 13.3 H, Lymph # (Auto) 1.1, Union # (Auto) 0.6, Eos # (Auto) 0.0, Baso # (Auto) 0.0 ASSESSMENT: Please see below. 1. Bilateral pneumonia 2. Severe COPD 3. CAD 4. Smoker 5. Alcohol abuse PLAN: 1. Levaquin 500 mg daily times 7 days 2. Prednisone 20 mg b.i.d. for 3 days and daily for 4 days 3. Symbicort at home 4. Continue Coreg 6.25 mg b.i.d. 5. Three-step for oxygen 6. Discharge home 7. Counseling for smoking done. Smoking cessation advised along with decreasing alcohol consumption - the patient declines treatment Plan and coordination of the patient's care discussed in the presence of Bar Pilot and nurse. CONDITION: Stable. Prognosis poor given the patient's lifestyle noncompliance with meds and followup. SCRIBED BY: DENISHA STEPHENS Safety Coordinator scribed while in presence of service performed by Dr. Cooper/Anabel Bradshaw APRN on 10/20/18 ([id number])
[2018-10-20] MEDS: LIBRIUM PO SCH ×2 (08:59→15:49)
[2018-10-20] MEDS: COREG PO SCH ×2 (08:59→17:11)
[2018-10-20] MEDS: IMDUR PO SCH (08:59)
[2018-10-20] MEDS: ROCEPHIN 1 GM in SODIUM CHLORIDE 50 ML IV SCH ×2 (08:59→09:34)
[2018-10-20] MEDS: THIAMINE PO SCH (08:59)
[2018-10-20] MEDS ORDERED: LEVAQUIN 500 MG in PREMIX 100 ML D5W 1 BAG IV SCH (09:00)
--- NOTE | 2018-10-20 10:20 | CM.DICTOOL ---
ADMISSION: 10/16/18 11:51 DISCHARGE: 10/20/18 DATE OF SERVICE: 10/20/18 FINAL DIAGNOSIS BILATERAL PNEUMONIA HYPERTENSION CAD AND [place] S/P CABG, 1999 AND STENT APPLICATIONS, [address] C[address] BY [address] RUSSELL, 07/16 ([facility]-APICAL REVERSIBLE ISCHEMIA ) PERIPHERAL ARTERIAL DISEASE COPD SLEEP APNEA ANEMIA ENLARGED, FATTY LIVER -ABD U/S, 07/04/18 NEUROPATHY, BILATERAL LEGS OSTEOARTHRITIS NONCOMPLIANCE WITH LIFESTYLE ALCOHOLISM BY HISTORY TOBACCO USE BY HISTORY CATARACT EXTRACTIONS, 2015 RIGHT LEG FRACTURE S/P PLATING, 2010 CARDIAC STENT APPLICATION, 2009 CABG, 1999 LAST VITALS Temp Pulse Resp BP Pulse Ox 97.7 F 56 L 20 150/81 H 95 10/20/18 05:03 10/20/18 05:03 10/20/18 05:03 10/20/18 05:03 10/20/18 05:03 TAKE THESE MEDICATIONS AT HOME Budesonide (Pulmicort 1 Mg/2 Ml) 1 vial NEB RTBID [facility] Last Admin: 10/20/18 05:05 Dose: 1 vial Carvedilol (Coreg) 6.25 mg PO BIDWM [facility] Last Admin: 10/20/18 08:59 Dose: 6.25 mg Ipratropium/Albuterol Sulfate (DUoneb 0.5 mg/3 ml) 3 ml IH TID PRN Isosorbide Mononitrate (Imdur) 30 mg PO DAILY [facility] Last Admin: 10/20/18 08:59 Dose: 30 mg Levofloxacin (Levaquin) 500 mg PO DAILY x7 DAYS [facility] Prednsione 20 mg PO with food BID x3 DAYS, Then DAILY x 4 DAYS, Then Stop ALLERGIES No Known Allergies Allergy (Verified 10/16/18 09:59) NEW PRESCRIPTIONS: Carvedilol [Coreg] 6.25 mg PO BIDWM #60 tablet 10/20/18 Levofloxacin [Levaquin] 500 mg PO QDAC #7 tablet 10/20/18 Prednisone 20 mg PO DIRECTED #10 tablet 10/20/18 SMOKING: CURRENT EVERYDAY SMOKER THE PATIENT HAS BEEN PROVIDED EDUCATION REGARDING THE BENEFIT OF COMPLETE CESSATION. HE HAS NOT VERBALIZED ANY PLANS TO STOP SMOKING. HE HAS BEEN PROVIDED ENCOURAGEMENT TO CONTINUE ATTEMPTING TO STOP COMPLETELY. HE IS MADE WELL OF THE RISKS OF CONTINUING THIS HABIT WELL THE BENEFITS OF COMPLETE CESSATION. WE WILL CONTINUE TO PROVIDE EDUCATION AND ENCOURAGEMENT IN THE OUTPATIENT SETTING TOWARD COMPLETE SMOKING CESSATION. DISEASE SPECIFIC EDUCATION: PNEUMONIA HYPERTENSION OXYGEN USE NEBULIZED BREATHING TREATMENTS HOME MEDICATIONS AND CHANGES MADE DURING THIS STAY NEW PRESCRIPTIONS STEROIDS AND RISKS OF SKI TECHNICIAN USE SUCH AVASCULAR NECROSIS, BONE DEMINERALIZATION COMPLIANCE WITH LIFE STYLE, MEDICATIONS AND FOLLOW UP FOLLOW UP LAB REVIEW: 10/20/18 04:22 10/20/18 04:22 10/20/18 04:22: Sodium 139.5, Potassium 3.68, Chloride 100.2, Carbon Dioxide 33.9 H, Anion Gap 9.08, BUN 11.9, Creatinine 0.55 L, Estimated GFR (MDRD) 148.00 , BUN/Creatinine Ratio 21.63, Glucose 147.2 H, Calcium 8.45, Total Bilirubin 0.16 L, AST 21.9, ALT 24.8, Alkaline Phosphatase 53.4 L, Total Protein 6.34, Albumin 3.29 L, Globulin 3.05, Albumin/Globulin Ratio 1.07 10/20/18 04:22: WBC 15.08 H, RBC 4.25 L, Hgb 12.6 L, Hct 38.2 L, MCV 89.9, MCH 29.6, MCHC 33.0, RDW Coeff of Lanette 13.2, Plt Count 440, Immature Gran % (Auto) 0.5, Neut % (Auto) 88.3, Lymph % (Auto) 7.2 L, Fountain % (Auto) 3.9, Eos % (Auto) 0.0, Baso % (Auto) 0.1, Immature Gran # (Auto) 0.1, Neut # (Auto) 13.3 H, Lymph # (Auto) 1.1, Fountain # (Auto) 0.6, Eos # (Auto) 0.0, Baso # (Auto) 0.0 PLAN: DISCHARGE HOME TODAY, 10/20/[address] COOPER IN HIS OFFICE ON 10/25/18 AT 9:30 A.M. [facility] WILL PROVIDE PORTABLE CONSERVER AND HOME OXYGEN CONCENTRATOR FOR YOU [address] [place] [address]# [phone] RESUME YOUR HOME MEDICATIONS PER LIST PROVIDED BY THE NURSING STAFF PLEASE NOTE THE INCREASE IN YOUR CARVEDILOL (COREG) NEW PRESCRIPTIONS CARVEDILOL (COREG) 6.25 MG, TAKE ONE TABLET BY MOUTH WITH MEALS TWICE DAILY LEVAQUIN 500 MG, TAKE ONE TABLET BY MOUTH DAILY FOR 7 DAYS ONLY PREDNISONE 20 MG, TAKE ONE TABLET BY MOUTH WITH FOOD FOR 3 DAYS, THEN ONE TABLET BY MOUTH WITH FOOD DAILY FOR 4 DAYS ACTIVITY GET PLENTY OF REST AT HOME. GRADUALLY INCREASE YOUR ACTIVITY LEVEL ACCORDING TO YOUR TOLERATION DO NOT DRINK ALCOHOL STOP SMOKING USE YOUR OXYGEN CONTINUOUSLY DIRECTED DIET HEALTHY HEART SUMMARY THE PATIENT IS ALERT AND ORIENTED X3. HE CONTINUES TO BE INDEPENDENT WITH ADL' S AND REQUIRES NO HOME HEALTH OR HOMEMAKING SERVICES. HE DESIRES TO RETURN HOME AT DISCHARGE. HE HAS A NEBULIZER AND MEDICATIONS FOR BREATHING TREATMENTS. HE WILL BE PROVIDED HOME OXYGEN, PORTABLE CONSERVER AND CONCENTRATOR FOR HOME USE BY [facility]. THE SKIN TURGOR IS INTACT AND WITHOUT DECUBITUS ULCERS. NUTRITIONAL AND HYDRATION STATUS HAVE BEEN VERY GOOD DURING THIS STAY. MR. PAULINO HAS RESPONDED PLANNED TO THE ANTIBIOTICS, BREATHING TREATMENTS AND STEROID THERAPIES DURING THIS STAY. HIS IS ABLE TO BREATHE MUCH BETTER AND HAS BEEN ABLE TO TOLERATE BEING UP AND ABOUT INDEPENDENTLY WITHOUT SEVERE RESPIRATORY DIFFICULTY. HE HAS BEEN TESTED FOR HOME OXYGEN AND DOES QUALIFY SINCE HIS SATS WITH EXERCISE FALL TO 86% ON ROOM AIR. WE HAVE ARRANGED FOR HIM TO HAVE A PORTABLE SYSTEM FOR DISCHARGE. A CONCENTRATOR WITH SUPPLIES HAS BEEN REQUESTED FOR HOME USE. MR. PAULINO HAS VERBALIZED HIS INTENT TO COMPLY WITH USE. CURRENT CODE STATUS FULL CODE ARVIND DASH APRN MERCY COOPER M.D.
[2018-10-20 13:59] VITALS: BP 128/71; TEMP 97.9
--- NOTE | 2018-10-20 14:27 | PN ---
DATE OF SERVICE: 10/18/18 SUBJECTIVE: The patient was seen and examined with Nurse Practitioner. Bronchitis seems to be resolving. Counseling for smoking and alcohol done. Continue antibiotics, steroids and NEBS treatment. TIME SPENT: More than 30 minutes. Plan and coordination of the patient's care discussed in the presence of nurse. VIET
--- NOTE | 2018-10-20 14:44 | PN ---
DATE OF SERVICE: 10/19/18 SUBJECTIVE: The patient was seen and examined with Nurse Practitioner. The patient's condition is stable and improving. His breath compacity seems to have improved. PHYSICAL EXAMINATION: HEENT: Head normocephalic, atraumatic. Eyes: Extraocular muscles are intact. Pupils are equal, round and reactive to light and accommodation. Ears: No lesions. Nose appeared normal. Throat: No exudate or erythema. NECK: Supple. No JVD, no carotid bruit. No lymphadenopathy or thyromegaly. LUNGS: Decreased breath sounds. Clear to auscultation. Percussion note normal. Chest symmetrical. HEART: S1, S2, no S3. No murmurs. No cyanosis or clubbing. No ascites. Pulses: Dorsalis pedis and posterior tibial pulses +1 to +2 bilaterally. ABDOMEN: Soft. Nontender. Bowel sounds active. No CVA tenderness. No mass felt. EXTREMITIES: No edema. Full range of motion of all extremities, equal. NEUROLOGIC: No focal deficit. Cranial nerves II through XII are grossly intact. No headache, no double vision or headache. SKIN: Not dry. Intact. Turgor - normal. LYMPHATIC: No palpable lymph nodes/no lymphedema. MUSCULOSKELETAL: Normal joints with no swelling. Muscle tone is normal. ASSESSMENT: 1. Acute bronchitis/pneumonitis improving PLAN: 1. Counseling for smoking done. 2. Counseling for alcohol done, he doesn't want any help to stop alcohol abuse. TIME SPENT: More than 30 minutes. Plan and coordination of the patient's care discussed in the presence of nurse. VIET
--- NOTE | 2018-10-20 14:48 | PN ---
DATE OF SERVICE: 10/20/18 SUBJECTIVE: The patient was seen and examined with Nurse Practitioner. The patient's condition has improved. He is up and about. He is going to need home oxygen because his oxygen saturation drops to 87-86% with walking. PHYSICAL EXAMINATION: HEENT: Head normocephalic, atraumatic. Eyes: Extraocular muscles are intact. Pupils are equal, round and reactive to light and accommodation. Ears: No lesions. Nose appeared normal. Throat: No exudate or erythema. NECK: Supple. No JVD, no carotid bruit. No lymphadenopathy or thyromegaly. LUNGS: Decreased breath sounds. Good air entry. Clear to auscultation. Percussion note normal. Chest symmetrical. HEART: S1, S2, no S3. No murmurs. No cyanosis or clubbing. No ascites. Pulses: Dorsalis pedis and posterior tibial pulses +1 to +2 bilaterally. ABDOMEN: Soft. Nontender. Bowel sounds active. No CVA tenderness. No mass felt. EXTREMITIES: No edema. Full range of motion of all extremities, equal. NEUROLOGIC: No focal deficit. Cranial nerves II through XII are grossly intact. No headache, no double vision or headache. SKIN: Not dry. Intact. Turgor - normal. LYMPHATIC: No palpable lymph nodes/no lymphedema. MUSCULOSKELETAL: Normal joints with no swelling. Muscle tone is normal. PLAN: 1. The patient will be discharged home on Steroids. 2. Side effects of steroids, side effects of steroids including avascular necrosis of femoral heads, osteoporosis, diabetes all discussed with the patient. The patient is noncompliant. PROGNOSIS: Poor TIME SPENT: More than 30 minutes. Plan and coordination of the patient's care discussed in the presence of nurse. VIET
--- NOTE | 2018-10-20 14:49 | PN ---
10/16/18: Level 5 10/17/18: Intermediate 10/18/18: Intermediate 10/19/18: Intermediate 10/20/18: D as in discharge MTDD
--- NOTE | 2018-10-30 12:57 | DS ---
DATE OF SERVICE: 10/20/18 FINAL DIAGNOSIS: 1.BILATERAL PNEUMONIA 2.HYPERTENSION 3.CAD AND [place] S/P CABG, 1999 AND STENT APPLICATIONS, 2009 4.RECENT HEART CATH BY DR. RUSSELL, 07/16 ([facility]-APICAL REVERSIBLE ISCHEMIA) 5.PERIPHERAL ARTERIAL DISEASE 6.COPD 7.SLEEP APNEA 8.ANEMIA 9.ENLARGED, FATTY LIVER -ABD U/S, 07/04/18 10.NEUROPATHY, BILATERAL LEGS 11.OSTEOARTHRITIS 12.NONCOMPLIANCE WITH LIFESTYLE 13.ALCOHOLISM BY HISTORY 14.TOBACCO USE BY HISTORY 15.CATARACT EXTRACTIONS, 2015 16.RIGHT LEG FRACTURE S/P PLATING, 2010 17.CARDIAC STENT APPLICATION, 2009 18.CABG, 1999 LAST VITALS: Temp Pulse Resp BP Pulse Ox 97.7 F 56 L 20 150/81 H 95 10/20/18 05:03 10/20/18 05:03 10/20/18 05:03 10/20/18 05:03 10/20/18 05:03 DISCHARGE INSTRUCTIONS: DISCHARGE HOME TODAY, 10/20/18. RETURN TO SEE DR. COOPER IN HIS OFFICE ON 10/25/18 AT 9:30 A.M. [facility] WILL PROVIDE PORTABLE CONSERVER AND HOME OXYGEN CONCENTRATOR FOR YOU [address] [place] [address]# [phone]. RESUME YOUR HOME MEDICATIONS PER LIST PROVIDED BY THE NURSING STAFF. PLEASE NOTE THE INCREASE IN YOUR CARVEDILOL (COREG) TAKE THESE MEDICATIONS AT HOME: Budesonide (Pulmicort 1 Mg/2 Ml) 1 vial NEB RTBID [facility] Carvedilol (Coreg) 6.25 mg PO BIDWM [facility] Ipratropium/Albuterol Sulfate (DUoneb 0.5 mg/3 ml) 3 ml IH TID PRN Isosorbide Mononitrate (Imdur) 30 mg PO DAILY [facility] Levofloxacin (Levaquin) 500 mg PO DAILY x7 DAYS [facility] Prednsione 20 mg PO with food BID x3 DAYS, Then DAILY x 4 DAYS, Then Stop ALLERGIES: No Known Allergies Allergy (Verified 10/16/18 09:59) NEW PRESCRIPTIONS: Carvedilol [Coreg] 6.25 mg PO BIDWM #60 tablet 10/20/18 Levofloxacin [Levaquin] 500 mg PO QDAC #7 tablet 10/20/18 Prednisone 20 mg PO DIRECTED #10 tablet 10/20/18 SMOKING: CURRENT EVERYDAY SMOKER THE PATIENT HAS BEEN PROVIDED EDUCATION REGARDING THE BENEFIT OF COMPLETE CESSATION. HE HAS NOT VERBALIZED ANY PLANS TO STOP SMOKING. HE HAS BEEN PROVIDED ENCOURAGEMENT TO CONTINUE ATTEMPTING TO STOP COMPLETELY. HE IS MADE WELL OF THE RISKS OF CONTINUING THIS HABIT WELL THE BENEFITS OF COMPLETE CESSATION. WE WILL CONTINUE TO PROVIDE EDUCATION AND ENCOURAGEMENT IN THE OUTPATIENT SETTING TOWARD COMPLETE SMOKING CESSATION. ACTIVITY: GET PLENTY OF REST AT HOME. GRADUALLY INCREASE YOUR ACTIVITY LEVEL ACCORDING TO YOUR TOLERATION DO NOT DRINK ALCOHOL STOP SMOKING USE YOUR OXYGEN CONTINUOUSLY DIRECTED DIET: HEALTHY HEART DISEASE SPECIFIC EDUCATION: PNEUMONIA HYPERTENSION OXYGEN USE NEBULIZED BREATHING TREATMENTS HOME MEDICATIONS AND CHANGES MADE DURING THIS STAY NEW PRESCRIPTIONS STEROIDS AND RISKS OF SNF USE SUCH AVASCULAR NECROSIS, BONE DEMINERALIZATION COMPLIANCE WITH LIFE STYLE, MEDICATIONS AND FOLLOW UP FOLLOW UP HOSPITAL COURSE: This is a white male who admitted. He had came to the emergency room complaining of shortness of breath and had low grade fever. He has a long history of severe COPD. He is a heavy smoker and an alcoholic. Chest x-ray and CT revealed bilateral pneumonia. He did have some elevation in his blood pressure while he was here. We increased his Coreg to 6.25 twice a day from 3.125mg. He was admitted and placed on Rocephin 1 gram IV daily along with Levaquin 500mg IV daily. He was started on Solu-Medrol initially at 40mg IV Q 8 hours due to worsening wheezing. This was increased to 100mg IV Q 8 hours and then to 125mg IV Q 8 hours. Initially ABGS were abnormal. He was requiring oxygen. Over the course of several days his shortness of breath slowly improved. Again he had bilateral pneumonia with underlining COPD. He was placed on Librium 10mg three times a day due to the alcohol use. On the day of discharge he had been up and about walking around without his oxygen but reported that he still got short of breath. A three step O2 test was done and he was 88% on exertion so he will be go home with home oxygen with a portable conserver and a home oxygen concentrator. He will continue on his Coreg 6.25 twice a day. He will also go home on Levaquin 500mg daily for the next 7 days along with Prednisone 20mg twice a day for 3 days then daily for 4 days. He is advised to stop drinking alcohol. Smoking cessation is along advised. He is to continue with increased rest and gradually increased activity as tolerated. He will followup with us in the office next week. TIME SPENT: More than 60 minutes. VIET
== END 2018-10-20 17:42 | disposition home or self-care (01) | DRG 179 ==
LOC: ED 09:55 → MEDSURG B 11:51
PROVIDERS: ADMIT Internal Medicine; ATTEND Internal Medicine
DX: J69.0 Pneumonitis due to inhalation of food and vomit (principal); J06.9 Acute upper respiratory infection, unspecified; J02.9 Acute pharyngitis, unspecified; J44.9 Chronic obstructive pulmonary disease, unspecified; J20.9 Acute bronchitis, unspecified; I10 Essential (primary) hypertension; I73.9 Peripheral vascular disease, unspecified; I25.10 Atherosclerotic heart disease of native coronary artery without angina pectoris; G47.30 Sleep apnea, unspecified; G62.9 Polyneuropathy, unspecified; D64.9 Anemia, unspecified; K76.0 Fatty (change of) liver, not elsewhere classified; M19.90 Unspecified osteoarthritis, unspecified site; F10.10 Alcohol abuse, uncomplicated; R05 Cough; Z91.19 Patient's noncompliance with other medical treatment and regimen; Z72.0 Tobacco use
CPT/HCPCS: 36415; 80053; 82550; 82803; 82962; 83605; 84145; 84484; 85025; 87040; 87502; 87651; 93005; 93010; 94640; 94761; 96365; 96375; 99284

== ENCOUNTER 2019-06-25 16:26 | Inpatient (IN) ==
[2019-06-25] MEDS ORDERED: ATROPINE SULFATE PFS IVP PRN (16:42)
[2019-06-25] MEDS ORDERED: TYLENOL PO PRN (16:42)
[2019-06-25] MEDS ORDERED: NITROSTAT SL PRN (16:42)
[2019-06-25] MEDS ORDERED: VISTARIL INJ IM PRN (16:42)
--- NOTE | 2019-06-25 17:24 | DI ---
EXAM: Chest two views Date: 06/25/2019 Comparison: Chest x-ray October 19, 2018 History: Shortness of breath FINDINGS: PA and lateral views of the chest obtained. There are sternotomy wires. Cardiac silhouette and pulmonary vascularity are normal. No consolidation, pleural effusion, or evidence of pneumothor ax. No acute fractures in the chest. Impression: No active chest disease.
[2019-06-25] MEDS: XOPENEX 1.25 MG NEB SCH ×2 (17:29→23:05)
[2019-06-25] MEDS: PULMICORT 1 MG/2 ML NEB SCH (17:31)
[2019-06-25 17:36] VITALS: BMI 27.3
[2019-06-25] MEDS: ROCEPHIN 1 GM/50 ML D5W 1 GM/50 ML BAG IV SCH (18:15)
[2019-06-25] MEDS: SOLU-MEDROL 125 MG IVP SCH ×2 (18:15→21:40)
[2019-06-25] MEDS: SODIUM CHLORIDE 1,000 ML IV SCH (18:15)
[2019-06-25] MEDS: ZITHROMAX PO SCH (18:17)
[2019-06-25] MEDS: LIBRIUM PO SCH (21:40)
[2019-06-25] MEDS: PLETAL PO SCH (21:40)
[2019-06-26] MEDS: SOLU-MEDROL 125 MG IVP SCH ×3 (04:53→20:04)
[2019-06-26] MEDS: XOPENEX 1.25 MG NEB SCH ×4 (04:55→22:41)
[2019-06-26] MEDS: PULMICORT 1 MG/2 ML NEB SCH ×2 (04:55→16:44)
[2019-06-26] MEDS: ROCEPHIN 1 GM/50 ML D5W 1 GM/50 ML BAG IV SCH (08:10)
--- NOTE | 2019-06-26 08:25 | PCM.PROG ---
Attending Provider: ATTENDING PROVIDER: Dr. MERCY COOPER This patient is seen with Anabel Bradshaw, Nurse Practitioner. DATE OF SERVICE: 06/26/19 SUBJECTIVE: This 68 year old /WHITE M was hospitalized 06/25/19. The patient is still short of breath. He has a significant amount of sputum this morning. No fever. REVIEW OF SYSTEMS: CONSTITUTIONAL: No night sweats. No fatigue, malaise, lethargy. No fever or chills. Weakness. HEENT: Eyes: No visual changes. No eye pain. No eye discharge. ENT: No runny nose. No epistaxis. No sinus pain. No odynophagia. No congestion. RESPIRATORY: Cough, no congestion. No hemoptysis. Shortness of breath. CARDIOVASCULAR: No angina symptoms. No CHF symptoms. No atypical chest pain for CAD. No palpitations. No orthopnea.. GASTROINTESTINAL: No abdominal pain. No nausea or vomiting. No diarrhea or constipation. No hematemesis. No hematochezia. GENITOURINARY: No urgency. No frequency. No dysuria. No hematuria. No obstructive symptoms. No discharge. No pain. No significant abnormal bleeding. MUSCULOSKELETAL: No musculoskeletal pain; no joint swelling. NEUROLOGICAL: Awake, alert, oriented to time, place and person. No headache. No neck pain. No syncope. No seizures. No dizziness. PSYCHIATRIC: Not anxious. No depression. No suicidal thoughts. No homicidal thoughts. SKIN: No rash. No lesions. No wounds. ENDOCRINE: No unexplained weight loss. No weight gain. HEMATOLOGIC/LYMPHATIC: No anemia. No purpura. No petechiae. No prolonged or excessive bleeding. No palpable lymph nodes. PHYSICAL EXAMINATION: GENERAL: The patient is awake, alert and oriented, lying in bed in no distress. VITAL SIGNS: Temperature 98.3 F, Pulse 77, Respiratory Rate 16, BP 129/79, Pulse Ox 95% HEENT: Head normocephalic, atraumatic. Eyes: Extraocular muscles are intact. Pupils are equal, round and reactive to light and accommodation. Ears: No lesions. Nose appeared normal. Throat: No exudate or erythema. NECK: Supple. No JVD, no carotid bruit. No lymphadenopathy or thyromegaly. LUNGS: Diminished breath sounds. Crackles on the left lower lobe. Improved bilateral expiratory wheezing. Clear to auscultation. Percussion note normal. Chest symmetrical. HEART: S1, S2, no S3. No murmurs. No cyanosis or clubbing. No ascites. Pulses: Dorsalis pedis and posterior tibial pulses +1 to +2 both sides. ABDOMEN: Soft. Non-tender. Bowel sounds active. No CVA tenderness. No mass felt. EXTREMITIES: No edema. Full range of motion of all extremities, equal. NEUROLOGIC: No focal deficit. Cranial nerves II through XII are grossly intact. No headache, no double vision or headache. SKIN: Not dry. Intact. Turgor-normal. LYMPHATIC: No palpable lymph nodes/no lymphedema. MUSCULOSKELETAL: Normal joints with no swelling. Muscle tone is normal. LAB REVIEW: 06/26/19 05:00 06/26/19 05:00 06/26/19 05:00: Sodium 140.0, Potassium 3.44 L, Chloride 102.3, Carbon Dioxide 27.6, Anion Gap 13.54, BUN 10.3, Creatinine 0.64, Estimated GFR (MDRD) 124.00, BUN/Creatinine Ratio 16.09, Glucose 183.9 H D, Calcium 8.86, Total Bilirubin 0.30, AST 19.1, ALT 12.1, Alkaline Phosphatase 75.9, Total Protein 7.46, Albumin 3.83, Globulin 3.63, Albumin/Globulin Ratio 1.05 06/26/19 05:00: WBC 9.89, RBC 3.82 L, Hgb 11.2 L, Hct 34.0 L, MCV 89.0, MCH 29.3, MCHC 32.9, RDW Coeff of Lanette 12.6, Plt Count 445 H, Immature Gran % (Auto) 0.4, Neut % (Auto) 87.4, Lymph % (Auto) 11.6, Crane % (Auto) 0.5, Eos % (Auto) 0.0, Baso % (Auto) 0.1, Immature Gran # (Auto) 0.0, Neut # (Auto) 8.6 H, Lymph # (Auto) 1.2, Crane # (Auto) 0.1 L, Eos # (Auto) 0.0, Baso # (Auto) 0.0 06/25/19 16:47: Puncture Site R rad, O2 Saturation 95.0, ABG pH 7.476 H, ABG pCO2 32.7 L, ABG pO2 70.0 L, ABG HCO3 24.1, ABG Total CO2 25, ABG Base Excess 1, Wilian Test +, O2 Delivery Device Ra, FiO2 % 21.0 06/25/19 16:45: Sodium 137.3, Potassium 2.92 L, Chloride 95.7 L, Carbon Dioxide 30.5 H, Anion Gap 14.02, BUN 8.4 L, Creatinine 0.72, Estimated GFR (MDRD) 108.00, BUN/Creatinine Ratio 11.66, Glucose 112.1 H, Calcium 9.13, Total Bilirubin 0.76, AST 20.8, ALT 11.9, Alkaline Phosphatase 84.0, Total Protein 8.27 H, Albumin 4.31, Globulin 3.96, Albumin/Globulin Ratio 1.08 06/25/19 16:45: WBC 14.75 H, RBC 4.21 L, Hgb 12.4 L, Hct 37.7 L, MCV 89.5, MCH 29.5, MCHC 32.9, RDW Coeff of Lanette 12.9, Plt Count 472 H, Immature Gran % (Auto) 0.5, Neut % (Auto) 76.1, Lymph % (Auto) 14.8, Crane % (Auto) 7.0, Eos % (Auto) 1.2, Baso % (Auto) 0.4, Immature Gran # (Auto) 0.1, Neut # (Auto) 11.2 H, Lymph # (Auto) 2.2, Crane # (Auto) 1.0, Eos # (Auto) 0.2, Baso # (Auto) 0.1 06/25/19 16:20: Urine Color Yellow, Urine Clarity Clear, Urine pH 6.0, Ur Specific Reading 1.010, Urine Protein Negative, Urine Glucose (UA) Negative, Urine Ketones Negative, Urine Blood Negative, Urine Nitrite Negative, Urine Bilirubin Negative, Urine Urobilinogen 0.2, Ur Leukocyte Esterase Negative ASSESSMENT: Please see below. 1. Acute pneumonitis 2. Shortness of breath 3. Coronary artery disease PLAN: 1. Continue IV antibiotics and steroids. 2. Discontinue IV fluids Plan and coordination of the patient's care discussed in the presence of Security Architect and nurse. SCRIBED BY: Leonarda MAURICE scribed while in presence of service performed by Dr. Cooper/Anabel Bradshaw APRN on 06/26/19 ([id number])
[2019-06-26] MEDS ORDERED: PRAVACHOL PO SCH (09:00)
[2019-06-26] MEDS ORDERED: COREG PO SCH (09:00)
[2019-06-26] MEDS: PLETAL PO SCH ×2 (09:47→20:04)
[2019-06-26] MEDS: ZITHROMAX PO SCH (09:47)
[2019-06-26] MEDS: LIBRIUM PO SCH ×2 (09:47→20:04)
[2019-06-26] MEDS: PLAVIX PO SCH (09:47)
[2019-06-26] MEDS: ASPIRIN EC PO SCH (09:48)
[2019-06-26] MEDS: THIAMINE IM SCH (09:48)
[2019-06-26] MEDS: SODIUM CHLORIDE 1,000 ML IV SCH (09:50)
--- NOTE | 2019-06-26 13:41 | HP ---
DATE OF SERVICE: 06/25/19 REASON FOR HOSPITALIZATION/HISTORY OF PRESENT ILLNESS: 68 year old white male hospitalized with coughing times one week, fever up to 101 with chills and yellow/pederson sputum. No signs of symptoms of CHF or CAD. PAST MEDICAL HISTORY: COPD Osteoarthritis PAD Hypertension Sleep apnea Anemia PAST SURGICAL HISTORY: CABG's x4 2000 [place] Fracture right leg with surgery 2011 REVIEW OF SYSTEMS: CONSTITUTIONAL: Fever, Fatigue. HEENT: Sinus drainage, no sore throat. RESPIRATORY: Cough, no congestion. CARDIOVASCULAR: No atypical chest pain for coronary artery disease. No angina, CHF symptoms, palpitations. Shortness of breath with exertion. GASTROINTESTINAL: No melena or abdominal pain. No GERD. GENITOURINARY: No hematuria, no prostatism, no polyuria. MINISTER ASSISTANT: No blackout, no dizziness, no headache, no double vision. MUSCULOSKELETAL: osteoarthritis pain, no joint swelling. ENDOCRINE: No weight loss, no weight gain. SKIN: Not dry, no rash. PSYCHIATRIC: Not anxious, no depression, no suicidal thoughts, no homicidal thoughts. SOCIAL HISTORY: Marital Status: . Alcohol Usage: Yes. Tobacco Usage: Quit. FAMILY HISTORY: Father Mother living Brothers 0 Sisters 0 MEDICATIONS: DUO NEBS 3ml inhalation TID PRN Isosorbide Mononitrate 30mg PO daily Budesonide 0.5mg inhalation TID PRN Carvedilol 6.25mg PO daily Plavix 75mg PO daily Pravastatin 40mg PO daily Cilostazol 100mg PO BID Anoro Ellipta 62.5 inhalation daily ALLERGIES: No known allergies PHYSICAL EXAMINATION: V/S: Pulse 80, blood pressure 132/74, oxygen saturation 90%. Height 5'4", BMI 26.2 and weight 150.2 GENERAL APPEARANCE: Oriented times three. HEENT: Pallor. Dry mucus membranes. Yellow sputum. NECK: No JVP, no bruits. RESPIRATORY: Rale left lower lobe, expiratory wheezing bilaterally. CARDIOVASCULAR: S1, S2, no S3, no murmur. No cyanosis, clubbing. No ascites. GI/ABDOMEN: No tenderness. Bowel sounds are active. EXTREMITIES: edema, pulses +1, equal. MINISTER ASSISTANT: Deep tendon reflexes, sensory, motor and gait all normal. RECTAL: pt refused/PROSTATE: 4-18 (1.0). ASSESSMENT: 1. Acute pneumonitis 2. Shortness of breath 3. Left SFA atherectomy balloon angioplasty 4. ASHD Dr. Resendiz 5. PAD mild GISELLE 0.74 6. History of pneumonia 7. CABG's 1999 8. Elevated liver function 9. Cardiac cath 07/16-Dr. Easley 10.Positive stress -cath- no stents 11.Noncompliance of lifestyle 12.COPD 13.Former smoker, 07/16 14.Osteoarthritis 15.History of alcoholism 16.Hypertension 17.Chronic bronchitis 18.Dr. Marquis 11/17/18 19.Anemia PLAN: 1. Routine Telemetry orders 2. No cardiac markers 3. CBC/CMP now and daily 4. Chest x-ray 5. Rocephin 1gram IV daily x5 days 6. Zithromax 500mg PO daily times 3 days 7. Solu-Medrol 125mg IV Q 8 hours 8. O2 NC at 1-2 liters 9. ABG on room air times one 10.Sputum culture 11.Regular diet 12.Continue home medications 13.Normal saline IV @ 75cc an hour 14.Xopenex 1.25mg NEB Q 6 hours 15.Pulmicort NEB 1mg BID 16.Hold home inhalers 17.Thiamine 100mg IM daily 18.Librium 25mg twice a day PO TIME SPENT: More than 70 minutes. MTDD
[2019-06-27] MEDS: XOPENEX 1.25 MG NEB SCH ×4 (04:56→23:30)
[2019-06-27] MEDS: PULMICORT 1 MG/2 ML NEB SCH ×2 (04:56→16:50)
[2019-06-27] MEDS: SOLU-MEDROL 125 MG IVP SCH (05:36)
[2019-06-27] MEDS: ROCEPHIN 1 GM/50 ML D5W 1 GM/50 ML BAG IV SCH (08:07)
[2019-06-27] MEDS: LIBRIUM PO SCH ×2 (08:08→20:41)
[2019-06-27] MEDS: PLETAL PO SCH ×2 (08:08→20:41)
[2019-06-27] MEDS: COREG PO SCH (08:08)
[2019-06-27] MEDS: ASPIRIN EC PO SCH (08:08)
[2019-06-27] MEDS: ZITHROMAX PO SCH (08:08)
[2019-06-27] MEDS: PLAVIX PO SCH (08:08)
[2019-06-27] MEDS: THIAMINE IM SCH (08:14)
[2019-06-27] MEDS: K-DUR PO SCH ×2 (12:15→17:03)
[2019-06-27] MEDS: HUMULIN R SUBCUT PRN ×2 (12:15→17:04)
[2019-06-28] MEDS: PULMICORT 1 MG/2 ML NEB SCH ×2 (04:48→17:50)
[2019-06-28] MEDS: XOPENEX 1.25 MG NEB SCH ×4 (04:48→22:26)
--- NOTE | 2019-06-28 08:34 | PCM.PROG ---
Attending Provider: ATTENDING PROVIDER: Dr. MERCY COOPER This patient is seen with Anabel Bradshaw, Nurse Practitioner. DATE OF SERVICE: 06/28/19 SUBJECTIVE: This 68 year old /WHITE M was hospitalized 06/25/19. The patient is resting comfortably. His coughing is improving. Potassium is slightly improved. REVIEW OF SYSTEMS: CONSTITUTIONAL: No night sweats. No fatigue, malaise, lethargy. No fever or chills. HEENT: Eyes: No visual changes. No eye pain. No eye discharge. ENT: No runny nose. No epistaxis. No sinus pain. No odynophagia. No congestion. RESPIRATORY: Cough, no congestion. No hemoptysis. Shortness of breath. CARDIOVASCULAR: No angina symptoms. No CHF symptoms. No atypical chest pain for CAD. No palpitations. No orthopnea.. GASTROINTESTINAL: No abdominal pain. No nausea or vomiting. No diarrhea or constipation. No hematemesis. No hematochezia. GENITOURINARY: No urgency. No frequency. No dysuria. No hematuria. No obstructive symptoms. No discharge. No pain. No significant abnormal bleeding. MUSCULOSKELETAL: No musculoskeletal pain; no joint swelling. NEUROLOGICAL: Awake, alert, oriented to time, place and person. No headache. No neck pain. No syncope. No seizures. No dizziness. PSYCHIATRIC: Not anxious. No depression. No suicidal thoughts. No homicidal thoughts. SKIN: No rash. No lesions. No wounds. ENDOCRINE: No unexplained weight loss. No weight gain. HEMATOLOGIC/LYMPHATIC: No anemia. No purpura. No petechiae. No prolonged or excessive bleeding. No palpable lymph nodes. PHYSICAL EXAMINATION: GENERAL: The patient is awake, alert and oriented, lying in bed in no distress. VITAL SIGNS: Temperature 97.9 F, Pulse 75, Respiratory Rate 18, BP 113/62, Pulse Ox 98% HEENT: Head normocephalic, atraumatic. Eyes: Extraocular muscles are intact. Pupils are equal, round and reactive to light and accommodation. Ears: No lesions. Nose appeared normal. Throat: No exudate or erythema. NECK: Supple. No JVD, no carotid bruit. No lymphadenopathy or thyromegaly. LUNGS: Diminished breath sounds improved. Clear to auscultation. Percussion note normal. Chest symmetrical. HEART: S1, S2, no S3. No murmurs. No cyanosis or clubbing. No ascites. Pulses: Dorsalis pedis and posterior tibial pulses +1 to +2 both sides. ABDOMEN: Soft. Non-tender. Bowel sounds active. No CVA tenderness. No mass felt. EXTREMITIES: No edema. Full range of motion of all extremities, equal. NEUROLOGIC: No focal deficit. Cranial nerves II through XII are grossly intact. No headache, no double vision or headache. SKIN: Not dry. Intact. Turgor-normal. LYMPHATIC: No palpable lymph nodes/no lymphedema. MUSCULOSKELETAL: Normal joints with no swelling. Muscle tone is normal. LAB REVIEW: 06/28/19 05:24 06/28/19 05:24 06/28/19 05:24: Sodium 141.2, Potassium 3.23 L, Chloride 105.0, Carbon Dioxide 29.3, Anion Gap 10.13, BUN 15.3, Creatinine 0.72, Estimated GFR (MDRD) 108.00, BUN/Creatinine Ratio 21.25, Glucose 113.4 H D, Calcium 8.40, Total Bilirubin 0.20, AST 21.2, ALT 17.3, Alkaline Phosphatase 76.8, Total Protein 6.43, Albumin 3.35 L, Globulin 3.08, Albumin/Globulin Ratio 1.08 06/28/19 05:24: WBC 20.00 H D, RBC 3.62 L, Hgb 10.7 L, Hct 32.5 L, MCV 89.8, MCH 29.6, MCHC 32.9, RDW Coeff of [place] 12.8, Plt Count 515 H, Immature Gran % (Auto) 1.0, Neut % (Auto) 80.0, Lymph % (Auto) 14.4, [place] % (Auto) 4.5, Eos % (Auto) 0.0, Baso % (Auto) 0.1, Immature Gran # (Auto) 0.2, Neut # (Auto) 16.0 H, Lymph # (Auto) 2.9, [place] # (Auto) 0.9, Eos # (Auto) 0.0, Baso # (Auto) 0.0 06/27/19 08:22: Sodium 135.5, Potassium 2.92 L, Chloride 99.7, Carbon Dioxide 26.6, Anion Gap 12.12, BUN 13.6, Creatinine 0.70, Estimated GFR (MDRD) 111.00, BUN/Creatinine Ratio 19.42, Glucose 229.0 H D, Calcium 8.50, Total Bilirubin 0 .24, AST 39.1, ALT 15.9, Alkaline Phosphatase 73.0, Total Protein 6.89, Albumin 3.63, Globulin 3.26, Albumin/Globulin Ratio 1.11 06/27/19 08:22: WBC 25.16 H, RBC 3.56 L, Hgb 10.5 L, Hct 31.1 L, MCV 87.4, MCH 29.5, MCHC 33.8, RDW Coeff of [place] 12.4, Plt Count 474 H, Immature Gran % (Auto) 1.1, Neut % (Auto) 91.8, Lymph % (Auto) 4.7 L, [place] % (Auto) 2.3, Eos % (Auto) 0.0, Baso % (Auto) 0.1, Immature Gran # (Auto) 0.3, Neut # (Auto) 23.1 H, Lymph # (Auto) 1.2, [place] # (Auto) 0.6, Eos # (Auto) 0.0, Baso # (Auto) 0.0 06/25/19 18:20: [employer]cept ASSESSMENT: Please see below. 1. Acute pneumonitis 2. Shortness of breath 3. Coronary artery disease PLAN: 1. Continue IV antibiotics 2. Continue Potassium Plan and coordination of the patient's care discussed in the presence of Tennis Desk Team Member and nurse. SCRIBED BY: GUILLERMO WASHINGTON Ordnance Engineering Technician scribed while in presence of service performed by Dr. Cooper/Anabel Bradshaw APRN on 06/28/19 ([id number])
[2019-06-28] MEDS ORDERED: LIBRIUM PO SCH ×2 (09:00→21:00)
--- NOTE | 2019-06-28 09:29 | PN ---
DATE OF SERVICE: 06/25/19 SUBJECTIVE: The patient was seen and examined with the nurse practitioner. The patient has acute bronchitis/pneumonitis with respiratory failure. He is going to be treated with IV antibiotics, steroids and nebs treatment. The patient is noncompliant of medications and lifestyle. He has continued to smoke heavy. He is also poor on followups and recommendations given by healthcare personnel. TIME SPENT: More than 30 minutes. Plan and coordination of the patient's care discussed in the presence of nurse. VIET
[2019-06-28] MEDS: PREDNISONE PO SCH (09:57)
[2019-06-28] MEDS: COREG PO SCH (09:57)
[2019-06-28] MEDS: K-DUR PO SCH ×3 (09:58→16:51)
[2019-06-28] MEDS: PLAVIX PO SCH (09:58)
[2019-06-28] MEDS: ASPIRIN EC PO SCH (09:58)
[2019-06-28] MEDS: LIBRIUM PO SCH ×3 (09:58→20:41)
[2019-06-28] MEDS: ROCEPHIN 1 GM/50 ML D5W 1 GM/50 ML BAG IV SCH (09:59)
[2019-06-28] MEDS: PLETAL PO SCH ×2 (09:59→20:40)
[2019-06-28] MEDS: THIAMINE IM SCH (09:59)
--- NOTE | 2019-06-28 12:03 | PN ---
DATE OF SERVICE: 06/26/19 SUBJECTIVE: The patient was seen and examined with Nurse Practitioner. The patient's condition has improved and coughing much less. He says that he is feeling better. Hydration status has improved. PHYSICAL EXAMINATION: HEENT: Head normocephalic, atraumatic. Eyes: Extraocular muscles are intact. Pupils are equal, round and reactive to light and accommodation. Ears: No lesions. Nose appeared normal. Throat: No exudate or erythema. NECK: Supple. No JVD, no carotid bruit. No lymphadenopathy or thyromegaly. LUNGS: Decreased breath sounds but clear to auscultation. Percussion note normal. Chest symmetrical. HEART: S1, S2, no S3. No murmurs. No cyanosis or clubbing. No ascites. Pulses: Dorsalis pedis and posterior tibial pulses +1 to +2 bilaterally. ABDOMEN: Soft. Nontender. Bowel sounds active. No CVA tenderness. No mass felt. EXTREMITIES: No edema. Full range of motion of all extremities, equal. NEUROLOGIC: No focal deficit. Cranial nerves II through XII are grossly intact. No headache, no double vision or headache. SKIN: Not dry. Intact. Turgor - normal. LYMPHATIC: No palpable lymph nodes/no lymphedema. MUSCULOSKELETAL: Normal joints with no swelling. Muscle tone is normal. CARDIOVASCULAR STATUS: Stable Counseling for alcohol abuse and smoking done. TIME SPENT: More than 30 minutes. Plan and coordination of the patient's care discussed in the presence of nurse. VIET
[2019-06-29] MEDS: PULMICORT 1 MG/2 ML NEB SCH (04:53)
[2019-06-29] MEDS: XOPENEX 1.25 MG NEB SCH ×2 (04:53→11:06)
[2019-06-29 05:06] VITALS: BP 112/59; TEMP 97.5
--- NOTE | 2019-06-29 08:32 | PCM.PROG ---
Attending Provider: ATTENDING PROVIDER: Dr. MERCY COOPER This patient is seen with Anabel Bradshaw, Nurse Practitioner. DATE OF SERVICE: 06/29/19 SUBJECTIVE: This 68 year old /WHITE M was hospitalized 06/25/19. The patient is resting comfortably. He has been up and about walking around. Shortness of breathing is improving. REVIEW OF SYSTEMS: CONSTITUTIONAL: No night sweats. No fatigue, malaise, lethargy. No fever or chills. HEENT: Eyes: No visual changes. No eye pain. No eye discharge. ENT: No runny nose. No epistaxis. No sinus pain. No odynophagia. No congestion. RESPIRATORY: Cough, no congestion. No hemoptysis. No shortness of breath. CARDIOVASCULAR: No angina symptoms. No CHF symptoms. No atypical chest pain for CAD. No palpitations. No orthopnea.. GASTROINTESTINAL: No abdominal pain. No nausea or vomiting. No diarrhea or constipation. No hematemesis. No hematochezia. GENITOURINARY: No urgency. No frequency. No dysuria. No hematuria. No obstructive symptoms. No discharge. No pain. No significant abnormal bleeding. MUSCULOSKELETAL: No musculoskeletal pain; no joint swelling. NEUROLOGICAL: Awake, alert, oriented to time, place and person. No headache. No neck pain. No syncope. No seizures. No dizziness. PSYCHIATRIC: Not anxious. No depression. No suicidal thoughts. No homicidal thoughts. SKIN: No rash. No lesions. No wounds. ENDOCRINE: No unexplained weight loss. No weight gain. HEMATOLOGIC/LYMPHATIC: No anemia. No purpura. No petechiae. No prolonged or excessive bleeding. No palpable lymph nodes. PHYSICAL EXAMINATION: GENERAL: The patient is awake, alert and oriented, lying in bed in no distress. VITAL SIGNS: Temperature 97.5 F, Pulse 88, Respiratory Rate 15, BP 112/59, Pulse Ox 92% HEENT: Head normocephalic, atraumatic. Eyes: Extraocular muscles are intact. Pupils are equal, round and reactive to light and accommodation. Ears: No lesions. Nose appeared normal. Throat: No exudate or erythema. NECK: Supple. No JVD, no carotid bruit. No lymphadenopathy or thyromegaly. LUNGS: Diminished breath sounds. Clear to auscultation. Percussion note normal. Chest symmetrical. HEART: S1, S2, no S3. No murmurs. No cyanosis or clubbing. No ascites. Pulses: Dorsalis pedis and posterior tibial pulses +1 to +2 both sides. ABDOMEN: Soft. Non-tender. Bowel sounds active. No CVA tenderness. No mass felt. EXTREMITIES: No edema. Full range of motion of all extremities, equal. NEUROLOGIC: No focal deficit. Cranial nerves II through XII are grossly intact. No headache, no double vision or headache. SKIN: Not dry. Intact. Turgor-normal. LYMPHATIC: No palpable lymph nodes/no lymphedema. MUSCULOSKELETAL: Normal joints with no swelling. Muscle tone is normal. LAB REVIEW: 06/29/19 05:04 06/29/19 05:04 06/29/19 05:04: Sodium 141.3, Potassium 3.56, Chloride 105.7, Carbon Dioxide 30.5 H, Anion Gap 8.66, BUN 13.8, Creatinine 0.68, Estimated GFR (MDRD) 115.00, BUN/Creatinine Ratio 20.29, Glucose 113.1 H, Calcium 8.29 L, Total Bilirubin 0.16 L, AST 31.5, ALT 20.0, Alkaline Phosphatase 67.1, Total Protein 6.35, Albumin 3.30 L, Globulin 3.05, Albumin/Globulin Ratio 1.08 06/29/19 05:04: WBC 13.27 H D, RBC 3.81 L, Hgb 11.1 L, Hct 34.7 L, MCV 91.1, MCH 29.1, MCHC 32.0, RDW Coeff of Lanette 13.2, Plt Count 494 H, Immature Gran % (Auto) 2.4, Neut % (Auto) 61.2, Lymph % (Auto) 29.5, [place] % (Auto) 6.3, Eos % (Auto) 0.3, Baso % (Auto) 0.3, Immature Gran # (Auto) 0.3, Neut # (Auto) 8.1 H, Lymph # (Auto) 3.9 H, [place] # (Auto) 0.8, Eos # (Auto) 0.0, Baso # (Auto) 0.0 ASSESSMENT: Please see below. 1. Acute pneumonitis clinically improved 2. Severe COPD 3. Shortness of breath, improved acute PLAN: 1. Keflex 500mg TID for 7 days 2. Repatha samples 3. Pulmicort NEB at night 4. DUO NEB three times a day 5. Prednisone 10mg daily for 5 days. 6. Followup in office next week. Plan and coordination of the patient's care discussed in the presence of Candle Molder and nurse. SCRIBED BY: Reginald MAURICEist scribed while in presence of service performed by Dr. Cooper/Anabel Bradshaw APRN on 06/29/19 ([id number])
[2019-06-29] MEDS: ROCEPHIN 1 GM/50 ML D5W 1 GM/50 ML BAG IV SCH (09:22)
[2019-06-29] MEDS: LIBRIUM PO SCH ×2 (09:23→09:24)
[2019-06-29] MEDS: PLAVIX PO SCH (09:23)
[2019-06-29] MEDS: PLETAL PO SCH (09:24)
[2019-06-29] MEDS: PREDNISONE PO SCH (09:24)
[2019-06-29] MEDS: K-DUR PO SCH ×2 (09:24→12:45)
[2019-06-29] MEDS: ASPIRIN EC PO SCH (09:24)
[2019-06-29] MEDS: THIAMINE IM SCH (09:25)
[2019-06-29] MEDS: COREG PO SCH (09:25)
--- NOTE | 2019-06-29 11:10 | CM.DICTOOL ---
ADMISSION: 06/25/19 16:26 DISCHARGE: JUNE 29, 2019 DATE OF SERVICE: 06/29/19 FINAL DIAGNOSIS ACUTE PNEUMONITIS CHRONIC BRONCHITIS COPD (DR. AVERY 11/17/2018) CAD ASHD PERIPHERAL ARTERY DISEASE FATTY ENLARGED LIVER (PER U/S 06/2018) FORMER SMOKER, STOPPED 06/2018 NON-COMPLIANCE OF LIFESTYLE HISTORY OF ALCOHOL USE CABG, 1999 STENT APPLICATION, 2009 HEART CATH, 2017 (NO BLOCKAGE) CATARACT EXTRACTION, 2015 RIGHT LOWER EXTREMITY FRACTURE WITH PLATING, 2010 LEFT SFA ATHERECTOMY/BALLOON ANGIOPLASTY, 2018 SESTAMIBI, JUNE 2018: POSITIVE FOR APICAL REVERSIBLE ISCHEMIA (CATH NEGATIVE) PFT 11/2017: MILD TO MODERATE LUNG DISEASE Hx of CABG LAST VITALS Temp Pulse Resp BP Pulse Ox 97.5 F L 88 15 112/59 L 92 L 06/29/19 05:03 06/29/19 05:03 06/29/19 05:03 06/29/19 05:03 06/29/19 05:03 TAKE THESE MEDICATIONS AT HOME Budesonide (Pulmicort 1 Mg/2 Ml) 1 mg NEB RT AT BEDTIME [facility] Last Admin: 06/29/19 04:53 Dose: 1 mg Documented by: Carvedilol (Coreg) 6.25 mg PO DAILYWM [facility] Last Admin: 06/29/19 09:25 Dose: 6.25 mg Documented by: Cilostazol (Pletal) 100 mg PO BID [facility] Last Admin: 06/29/19 09:24 Dose: 100 mg Documented by: Clopidogrel Bisulfate (Plavix) 75 mg PO DAILY [facility] Last Admin: 06/29/19 09:23 Dose: 75 mg Documented by: Potassium Chloride (K-Dur) 20 meq PO TIDWM [facility] Last Admin: 06/29/19 09:24 Dose: 20 meq Documented by: Prednisone (Prednisone) 10 mg PO DAILYWM [facility] FOR 5 DAYS Last Admin: 06/29/19 09:24 Dose: 20 mg Documented by: KEFLEX 500 MG TID FOR 7 DAYS REPATHA ALLERGIES No Known Allergies Allergy (Verified 10/16/18 09:59) DISCONTINUED MEDICATIONS PRAVASTATIN NEW PRESCRIPTIONS: KEFLEX 500 MG TID FOR 7 DAYS PREDNISONE 10 MG DAILY FOR 5 DAYS PULMICORT NEB 1 MG PER NEBULIZER AT BEDTIME DAILY POTASSIUM (KI-TAB) 10 MEQ DAILY FOR 5 DAYS REPATHA SAMPLES WILL BE GIVEN IN THE OFFICE SMOKING: ADVISED TO STOP SMOKING DISEASE SPECIFIC EDUCATION: PRESCRIPTIONS ACTIVITY APPOINTMENT USE OF NEBULIZER TREATMENTS LAB REVIEW: 06/29/19 05:04 06/29/19 05:04 06/29/19 05:04: Sodium 141.3, Potassium 3.56, Chloride 105.7, Carbon Dioxide 30.5 H, Anion Gap 8.66, BUN 13.8, Creatinine 0.68, Estimated GFR (MDRD) 115.00, BUN/Creatinine Ratio 20.29, Glucose 113.1 H, Calcium 8.29 L, Total Bilirubin 0.16 L, AST 31.5, ALT 20.0, Alkaline Phosphatase 67.1, Total Protein 6.35, Albumin 3.30 L, Globulin 3.05, Albumin/Globulin Ratio 1.08 06/29/19 05:04: WBC 13.27 H D, RBC 3.81 L, Hgb 11.1 L, Hct 34.7 L, MCV 91.1, MCH 29.1, MCHC 32.0, RDW Coeff of Lanette 13.2, Plt Count 494 H, Immature Gran % (Auto) 2.4, Neut % (Auto) 61.2, Lymph % (Auto) 29.5, [place] % (Auto) 6.3, Eos % (Auto) 0.3, Baso % (Auto) 0.3, Immature Gran # (Auto) 0.3, Neut # (Auto) 8.1 H, Lymph # (Auto) 3.9 H, [place] # (Auto) 0.8, Eos # (Auto) 0.0, Baso # (Auto) 0.0 PLAN: DISCHARGE HOME DIET: HEART HEALTHY ACTIVITY: RESUME TOLERATED AVOID OUTDOOR ACTIVITIES IN EXTREME COLD CONTINUE TO USE OXYGEN AT 2 LITERS PER NASAL CANNULA AT NIGHT CONTINUE DUONEBS AT LEAST 3 TIMES DAILY ADD PULMICORT NEB AT BEDTIME DAILY AN APPOINTMENT IS SCHEDULED WITH DR. COOPER/ARVIND DASH APRN ON June AT 11:45 AM CODE STATUS: DO NOT INTUBATE, CPR ONLY MR. PAULINO IS ALERT AND ORIENTED X 3. HE IS INDEPENDENT WITH ACTIVITIES OF DAILY LIVING. HE IS AMBULATORY IN THE HALLWAY WITHOUT STAFF ASSISTANCE OR USE OF ASSISTIVE DEVICE. MR. PAULINO IS AGREEABLE TO PLANS FOR DISCHARGE HOME. HE LIVES AT HOME WITH HIS . MR. PAULION HAS FOR HIS USE AT HOME OXYGEN AT NIGHT AND PRN DURING THE DAY. HE ALSO HAS A NEBULIZER FOR BREATHING TREATMENTS. MEAL INTAKES HAVE BEEN GOOD AT 100%. MR. PAULINO IS CONTINENT OF BOWEL AND BLADDER. SKIN IS INTACT, HYDRATION STATUS HAS IMPROVED. MD ARVIND LEON, PERSONAL PROPERTY ASSESSOR
--- NOTE | 2019-06-29 11:30 | PN ---
DATE OF SERVICE: 06/27/19 SUBJECTIVE: 68-year-old white male hospitalized with acute bronchitis/pneumonitis and shortness of breath. The patient's condition has steadily improved. REVIEW OF SYSTEMS: CONSTITUTIONAL: No night sweats. No fatigue, malaise, lethargy. No fever or chills. HEENT: Eyes: No visual changes. No eye pain. No eye discharge. ENT: No runny nose. No epistaxis. No sinus pain. No sore throat. No odynophagia. No congestion. RESPIRATORY: Mild cough, no congestion. No hemoptysis. No shortness of breath. CARDIOVASCULAR: Appetite has improved. No angina symptoms. No CHF symptoms. No atypical chest pain for CAD. No palpitations. No PND. No orthopnea. GASTROINTESTINAL: No abdominal pain. No nausea or vomiting. No diarrhea or constipation. No hematemesis. No hematochezia. GENITOURINARY: No urgency. No frequency. No dysuria. No hematuria. No obstructive symptoms. No discharge. No pain. No significant abnormal bleeding. MUSCULOSKELETAL: No musculoskeletal pain; no joint swelling. NEUROLOGICAL: No headache. No neck pain. No syncope. No seizures. No dizziness. PSYCHIATRIC: Not anxious. No depression. No suicidal thoughts. No homicidal thoughts. SKIN: No rash. No lesions. No wounds. ENDOCRINE: No unexplained weight loss. No weight gain. HEMATOLOGIC/LYMPHATIC: No anemia. No purpura. No petechiae. No prolonged or excessive bleeding. No palpable lymph nodes. PHYSICAL EXAMINATION: VITAL SIGNS: Temperature 97.4, pulse 90, respiratory rate 16, blood pressure 114/60, pulse ox 90% on room air. HEENT: Head normocephalic, atraumatic. Eyes: Extraocular muscles are intact. Pupils are equal, round and reactive to light and accommodation. Ears: No lesions. Nose appeared normal. Throat: No exudate or erythema. NECK: Supple. No JVD, no carotid bruit. No lymphadenopathy or thyromegaly. LUNGS: Decreased breath sounds with mild wheeze. Percussion note normal. Chest symmetrical. HEART: S1, S2. No cyanosis or clubbing. No ascites. Pulses: Dorsalis pedis and posterior tibial pulses +1 to +2 bilaterally. ABDOMEN: Soft. Nontender. Bowel sounds active. No CVA tenderness. No mass felt. EXTREMITIES: No edema. Full range of motion of all extremities, equal. NEUROLOGIC: No focal deficit. Cranial nerves II through XII are grossly intact. No headache, no double vision or headache. SKIN: Not dry. Intact. Turgor - normal. LYMPHATIC: No palpable lymph nodes/no lymphedema. MUSCULOSKELETAL: Normal joints with no swelling. Muscle tone is normal. LABS: Hemoglobin 11.2, hematocrit 32, WBC 26,000, normal differential. Creatinine 0.7, BUN 14, potassium 2.8, glucose 301. ASSESSMENT: 1. ACUTE BRONCHITIS/PNEUMONITIS WITH SHORTNESS OF BREATH WITH SEVERE CHRONIC LUNG DISEASE SEEMS TO BE IMPROVING WITH STEROIDS, NEBS. 2. LEUKOCYTOSIS LIKELY FROM STEROID THERAPY. 3. NEW PROBLEM HYPOKALEMIA. WE ARE GOING TO TREAT WITH K-DUR 20 MEQ T.I.D. DAILY. 4. ALSO BLOOD SUGAR 301 LIKELY FROM STEROIDS. WILL PUT THE PATIENT ON ACCU- CHECK WITH SLIDING SCALE. 5. THE PATIENT SAYS HE HAS QUIT DRINKING SINCE OCTOBER 2018 AND HAS QUIT SMOKING FOR ONE YEAR. THE PATIENT IS GOING TO BE DISCONTINUED ON SOLU-CORTEF AND GOING TO PUT ON PREDNISONE 20 MG DAILY. TIME SPENT: More than 30 minutes. Plan and coordination of the patient's care discussed in the presence of nurse. VIET
--- NOTE | 2019-07-02 09:32 | PN ---
DATE OF SERVICE: 06/28/19 SUBJECTIVE: The patient is up and about doing well. PHYSICAL EXAMINATION: HEENT: Head normocephalic, atraumatic. Eyes: Extraocular muscles are intact. Pupils are equal, round and reactive to light and accommodation. Ears: No lesions. Nose appeared normal. Throat: No exudate or erythema. NECK: Supple. No JVD, no carotid bruit. No lymphadenopathy or thyromegaly. LUNGS: Decreased breath sounds but clear to auscultation. Percussion note normal. Chest symmetrical. HEART: S1, S2, no S3. No murmurs. No cyanosis or clubbing. No ascites. Pulses: Dorsalis pedis and posterior tibial pulses +1 to +2 bilaterally. ABDOMEN: Soft. Nontender. Bowel sounds active. No CVA tenderness. No mass felt. EXTREMITIES: No edema. Full range of motion of all extremities, equal. NEUROLOGIC: No focal deficit. Cranial nerves II through XII are grossly intact. No headache, no double vision or headache. SKIN: Not dry. Intact. Turgor - normal. LYMPHATIC: No palpable lymph nodes/no lymphedema. MUSCULOSKELETAL: Normal joints with no swelling. Muscle tone is normal. ASSESSMENT: 1. ACUTE BRONCHITIS RESOLVING. THE PATIENT HAS CONTINUED TO SMOKE AND DRINK ALCOHOL. COUNSELING FOR THAT DONE. THE PATIENT DENIES IT BUT EVERYONE INCLUDING THE FAMILY MEMBERS KNOW THAT HE DRINKS ALCOHOL IN EXCESS AND ALSO SMOKES HEAVY. The patient was seen and examined with the nurse practitioner. Condition is improving. Prognosis is guarded. TIME SPENT: More than 30 minutes. Plan and coordination of the patient's care discussed in the presence of nurse. VIET
--- NOTE | 2019-07-02 09:51 | PN ---
DATE OF SERVICE: 06/29/19 SUBJECTIVE: The patient was seen and examined with the nurse practitioner. The patient's condition is stable. He is up and about. PHYSICAL EXAMINATION: HEENT: Head normocephalic, atraumatic. Eyes: Extraocular muscles are intact. Pupils are equal, round and reactive to light and accommodation. Ears: No lesions. Nose appeared normal. Throat: No exudate or erythema. NECK: Supple. No JVD, no carotid bruit. No lymphadenopathy or thyromegaly. LUNGS: Decreased breath sounds but clear to auscultation. Percussion note normal. Chest symmetrical. HEART: S1, S2, no S3. No murmurs. No cyanosis or clubbing. No ascites. Pulses: Dorsalis pedis and posterior tibial pulses +1 to +2 bilaterally. ABDOMEN: Soft. Nontender. Bowel sounds active. No CVA tenderness. No mass felt. EXTREMITIES: No edema. Full range of motion of all extremities, equal. NEUROLOGIC: No focal deficit. Cranial nerves II through XII are grossly intact. No headache, no double vision or headache. SKIN: Not dry. Intact. Turgor - normal. LYMPHATIC: No palpable lymph nodes/no lymphedema. MUSCULOSKELETAL: Normal joints with no swelling. Muscle tone is normal. ASSESSMENT/PLAN: Cardiovascular status stable. The patient is going to be discharged home. TIME SPENT: More than 30 minutes. Plan and coordination of the patient's care discussed in the presence of nurse. VIET
--- NOTE | 2019-07-02 09:53 | PN ---
BILLING 06/25/19 ADMISSION DAY LEVEL 5 06/26/19 INTERMEDIATE 06/27/19 INTERMEDIATE 06/28/19 INTERMEDIATE 06/29/19 DISCHARGE MTDD
--- NOTE | 2019-07-02 10:53 | DS ---
DATE OF SERVICE: 06/29/19 FINAL DIAGNOSIS: 1. ACUTE PNEUMONITIS 2. CHRONIC BRONCHITIS 3. COPD (DR. AVERY 11/17/2018) 4. CAD 5. ASHD 6. PERIPHERAL ARTERY DISEASE 7. FATTY ENLARGED LIVER (PER U/S 06/2018) 8. FORMER SMOKER, STOPPED 06/2018 9. NON-COMPLIANCE OF LIFESTYLE 10. HISTORY OF ALCOHOL USE 11. CABG, 1999 12. STENT APPLICATION, 2009 13. HEART CATH, 2017 (NO BLOCKAGE) 14. CATARACT EXTRACTION, 2015 15. RIGHT LOWER EXTREMITY FRACTURE WITH PLATING, 2010 16. LEFT SFA ATHERECTOMY/BALLOON ANGIOPLASTY, 2018 17. SESTAMIBI, JUNE 2018: POSITIVE FOR APICAL REVERSIBLE ISCHEMIA (CATH NEGATIVE) 18. PFT 11/2017: 19. MILD TO MODERATE LUNG DISEASE 20. Hx of CABG LAST VITALS Temp Pulse Resp BP Pulse Ox 97.5 F L 88 15 112/59 L 92 L 06/29/19 05:03 06/29/19 05:03 06/29/19 05:03 06/29/19 05:03 06/29/19 05:03 DISCHARGE INSTRUCTIONS: 1. CONTINUE TO USE OXYGEN AT 2 LITERS PER NASAL CANNULA AT NIGHT 2. CONTINUE DUONEBS AT LEAST 3 TIMES DAILY 3. ADD PULMICORT NEB AT BEDTIME DAILY 4. AN APPOINTMENT IS SCHEDULED WITH DR. COOPER/ARVIND DASH APRN ON June AT 11:45 AM MEDICATIONS AT DISCHARGE: Budesonide (Pulmicort 1 Mg/2 Ml) 1 mg NEB RT AT BEDTIME [facility] Last Admin: 06/29/19 04:53 Dose: 1 mg Documented by: Carvedilol (Coreg) 6.25 mg PO DAILYWM [facility] Last Admin: 06/29/19 09:25 Dose: 6.25 mg Documented by: Cilostazol (Pletal) 100 mg PO BID [facility] Last Admin: 06/29/19 09:24 Dose: 100 mg Documented by: Clopidogrel Bisulfate (Plavix) 75 mg PO DAILY [facility] Last Admin: 06/29/19 09:23 Dose: 75 mg Documented by: Potassium Chloride (K-Dur) 20 meq PO TIDWM [facility] Last Admin: 06/29/19 09:24 Dose: 20 meq Documented by: Prednisone (Prednisone) 10 mg PO DAILYWM [facility] FOR 5 DAYS Last Admin: 06/29/19 09:24 Dose: 20 mg Documented by: KEFLEX 500 MG TID FOR 7 DAYS REPATHA NEW PRESCRIPTIONS: KEFLEX 500 MG TID FOR 7 DAYS PREDNISONE 10 MG DAILY FOR 5 DAYS PULMICORT NEB 1 MG PER NEBULIZER AT BEDTIME DAILY POTASSIUM (KI-TAB) 10 MEQ DAILY FOR 5 DAYS REPATHA SAMPLES WILL BE GIVEN IN THE OFFICE DISCONTINUED MEDICATIONS: PRAVASTATIN DIET INSTRUCTIONS: HEART HEALTHY ACTIVITY: TOLERATED AVOID OUTDOOR ACTIVITIES IN EXTREME COLD SMOKING: ADVISED TO STOP SMOKING. DISEASE SPECIFIC EDUCATION: PRESCRIPTIONS ACTIVITY APPOINTMENT USE OF NEBULIZER TREATMENTS HOSPITAL COURSE: This is a white male who presented to our office with shortness of breath, cough, congestion for the past week. He was running a low grade fever. Oxygen saturation was 89 to 90%. He was admitted. Chest x-ray showed no acute process. He clinically sounded like he had pneumonitis however again it didn't show up. He was put on Rocephin 1 gm IV daily along with Zithromax 500 mg p.o. daily for the next three days, start on Solu-Medrol 125 mg IV q.8hr, Normal Saline at 75 cc/hr. He was placed on Xopenex nebs t.i.d. as well as Pulmicort nebs b.i.d. and required oxygen. ABGs were slightly abnormal. He has been wearing oxygen at 1 to 2L. Over the course of the past several days he steadily improved. Yesterday he was up walking about in the halls. Today, he feels ready to go home. He does have oxygen to use at home p.r.n. Will send him home on Prednisone 10 mg daily for 5 days, Keflex 500 mg t.i.d. for 7 days. He already has a nebulizer machine. I am going to add Pulmicort neb treatment 1 mg to be done every night to help prevent exacerbation. He is also to do the Duonebs three times a day for at least the next two weeks. He did have a bout of hypokalemia, partially due to hemodilution. He was supplemented with oral potassium 20 mEq p.o. t.i.d. He will go home on 10 mEq daily for the next five days. I will recheck a CMP in the office. He has a long history of severe COPD, is a heavy smoker. He claims that he has quit within the past year along with history of alcohol abuse however we know that he has not quit, he probably has significantly decreased his smoking and drinking and this also contributes to his chronic medical problems. No signs or symptoms of DTs. He was put on Librium as a precaution and given Thiamine. Today at time of discharge, oxygen saturation 92% on room air. Again, he has oxygen at home. Medications have been reviewed and discussed. I will followup with him in the office next week. Discharged in stable condition. TIME SPENT: More than 60 minutes. VIET
== END 2019-06-29 16:07 | disposition home or self-care (01) | DRG 194 ==
LOC: MEDSURG B 16:26
PROVIDERS: ADMIT Internal Medicine; ATTEND Internal Medicine
DX: J18.9 Pneumonia, unspecified organism; R50.9 Fever, unspecified; D64.9 Anemia, unspecified; I25.10 Atherosclerotic heart disease of native coronary artery without angina pectoris; M19.90 Unspecified osteoarthritis, unspecified site; R05 Cough; I10 Essential (primary) hypertension; E87.6 Hypokalemia; R06.02 Shortness of breath; I73.9 Peripheral vascular disease, unspecified; J44.1 Chronic obstructive pulmonary disease with (acute) exacerbation; J42 Unspecified chronic bronchitis; D72.829 Elevated white blood cell count, unspecified